=== PATIENT | female | born 1945 | race Caucasian/White ===

== ENCOUNTER 2023-12-30 12:25 | Inpatient (IN) | payer OTHER, SELFPAY ==
[2023-12-29] VITALS (8 sets, daily range): BP systolic 102–128; BP diastolic 22–65
--- NOTE | 2023-12-29 14:45 | ED.GENMED ---
History of Present Illness
General
Chief Complaint: Breathing Problem
Time Seen by Provider: 12/29/23 14:45
History of Present Illness
History of Present Illness:
HPI: Patient presents from with concerns for shortness of breath and was found to be 85% on room air. She has a history of COPD. She does not use oxygen at [facility] . Sister at bedside indicates the patient is been having shortness
of breath over the last several months. However symptoms apparently acutely worsened today.
EXAM:
GENERAL: Appears in no significant respiratory distress however she was already given a DuoNeb and has been placed on nasal cannula oxygen
HEENT: Moist oral mucosa
CARDIOVASCULAR: Regular rate and rhythm
PULMONARY: Minimal respiratory distress, the patient has decreased breath sounds equally with wheezes left greater than right
ABDOMEN: Soft and nontender with no peritoneal signs
NEUROLOGIC: The patient has evidence of dementia, not oriented to month or place, strength is equal in all extremities
EXTREMITIES: Moves all extremities equally, no tenderness, no edema
PYSCHIATRIC: Very limited historian, poor insight and judgment
TIME OF INITIAL ENCOUNTER: 3:05 PM
NUMBER AND COMPLEXITY OF PROBLEMS ADDRESSED AT THE ENCOUNTER
� Chronic conditions affecting care: COPD, hypothyroidism
� Acute Exacerbation and/or Progression of Chronic Illness: This is an acute problem
� Differential Diagnosis includes: COPD exacerbation, pneumonia, viral syndrome
AMOUNT AND/OR COMPLEXITY OF DATA TO BE REVIEWED AND ANALYZED
� I performed an independent evaluation of and my interpretation is:
EKG: Sinus 99, normal axis, no acute ST abnormality
CT:
X-rays: Chest x-ray shows no clear acute abnormality
Laboratory Studies: White count 15.6, hemoglobin normal, chemistries unremarkable, troponin negative,
Other:
� Review of other/old records: The patient had CT of the brain June 2022 which was unremarkable
� Clinical information was obtained by an independent historian: I spoke to the sister at bedside who states she is at her baseline mental status (history of dementia)
� Prescriptions/Medications Considered but not given:
� Further testing considered but not performed:
RISK OF COMPLICATIONS AND/OR MORBIDITY OR MORTALITY OF PATIENT MANAGEMENT
� Social determinants of health affecting care: Resides at [facility]
� Discussion with other providers: Hospitalist for admission at 4:33 PM
� Escalation of care including admission/observation vs risk of discharge considered: The patient had room air sat of 85% and normally does not use oxygen at her facility. We have placed her on nasal cannula oxygen and have
given IV Decadron and DuoNebs. On reassessment at 4:30 PM, she is confirmed to be hypoxic to 86% on room air. Will plan keeping in the hospital due to the hypoxia and treat for COPD exacerbation.
Past History
Past History
ED Past Medical History: COPD, Hypothyroidism and Psychiatric
Social History
Tobacco: Smoker
Phy Exam
Physical Exam
Physical Exam:
See HPI
Scores
Heart Failure Risk
Heart Failure Risk Score: Not Applicable
Course
Orders/Labs/Results
Orders:
Orders
12/29/23 14:43
Electrocardiogram (*1) Urgent
Reason for Study: Other
Other Reason for Exam: Respiratory Distress
Cardiac Monitoring- Treatment ONCE
EKG- Treatment ONCE
IV Insert/Care/Rem.- Treatment PRN
CR Chest - 2 Views Urgent
Comment:
Reason For Exam: respiratory distress
O2 Therapy [RESP] Urgent
Titrate/Wean O2 to maintain O2 sat greater than (%): 93
Special Instructions: TO MAINTAIN CONTINUOUS O2 SATS >/= 93%
Pulse Ox/cont/shift [RESP] Urgent
Quantity: 1
Special Instructions: continuous pulse ox
12/29/23 14:54
Complete Blood Count/With Diff Urgent
Comprehensive Metabolic Panel Urgent
TSH Reflex To Free T4 Urgent
Comment: TSH REFLEX ADDED ON BY FLOOR 3PM 12-29-23
Troponin I Urgent
12/29/23 14:59
Add On- LAB Urgent
Tests Added?: tsh reflex fT4
12/29/23 15:09
Dexamethasone Sod Phosphate [Decadron] 10 mg IV NOW STA
Ipratropium/Albuterol Sulfate [Duoneb] 3 ml INH R NOW ONE
12/29/23 15:43
Add On- LAB Urgent
Tests Added?: bnp
12/29/23 15:59
COVID-19 Antigen Urgent
Source: Nasal Swab
Abnormal Lab Results
12/29/23
14:54
WBC 15.6 H 10^3/uL
(4.8-10.8)
RDW 14.8 H %
(11.5-14.5)
MPV 10.6 H fL
(7.4-10.4)
Abs Immat Gran (auto) 0.1 H 10^3/uL
(0-0.05)
Absolute Neuts (auto) 12.5 H 10^3/uL
(1.4-6.5)
Absolute Monos (auto) 1.5 H 10^3/uL
(0.1-0.6)
Neutrophils % 80.2 H %
(42.2-75.2)
Lymphocytes % 9.4 L %
(20.5-51.1)
Monocytes % 9.7 H %
(1.7-9.3)
BUN 22 H mg/dl
(7-17)
Glucose 122 H mg/dl
(70-99)
Alkaline Phosphatase 127 H U/L
(38-126)
12/29/23 14:54
12/29/23 14:54
Vital Signs
Initial and Last Documented VS:
Initial Vital Signs
Temp Pulse Resp BP Pulse Ox
100 F 99 26 128/60 85
12/29/23 14:45 12/29/23 14:45 12/29/23 14:45 12/29/23 14:45 12/29/23 14:45
Last Documented Vital Signs
Temp Pulse Resp BP Pulse Ox
99.2 F 95 17 102/54 94
12/29/23 16:00 12/29/23 17:00 12/29/23 17:00 12/29/23 17:00 12/29/23 17:00
*Critical Care Note
Total Time (30-74mins, 75-104mins- exclusive of procedures): Not Applicable
ED Attending Note
-
Portions of this chart may have been created with voice recognition software.� Occasional wrong word or��sound alike� substitutions may have occurred due to the inherent limitations of voice recognition software.
Discharge Plan
Departure
Patient Disposition: Admit
Date of Disposition: 12/29/23
Time of Disposition: 17:07
Presentation/result/management discussed w/ accepting MD/DO: Hospitalist
Discharge Problem:
Acute exacerbation of chronic obstructive pulmonary disease
Prescriptions:
No Action
fluoxetine 40 mg Capsule
40 mg PO DAILY
donepezil 5 mg Tablet
5 mg PO DAILY@1900
levothyroxine [Synthroid] 50 mcg Tablet
50 mcg PO DAILY@0600
mirtazapine 15 mg Tablet
22.5 mg PO DAILY@1900
acetaminophen 325 mg Tablet
650 mg PO TIDPRN PRN (Reason: mild pain)
cetirizine 10 mg Tablet
10 mg PO DAILY
risperidone 0.25 mg tablet
0.25 mg PO BID
nystatin [Nystop] 100,000 unit/gram powder
1 applic TOPICAL BID
Patient Comments:
apply to right groin and under both breasts
buspirone 15 mg tablet
15 mg PO DAILY@1900
bupropion HCl 150 mg tablet extended release 24 hr
150 mg PO DAILY
Referrals:
YARA,MADEEHA, MD [Family Provider] -
Interventions
Interventions:
*Risk Screen - Suicide Last Done: 12/29/23 14:45
*General Assessment Last Done: 12/29/23 14:45
*Neglect/Abuse Screening Last Done: 12/29/23 14:45
ED- Fall Risk Assessment Last Done: 12/29/23 15:24
*ED COVID-19 Vaccine History Last Done: 12/29/23 14:51
ED- Cardiac Assessment Last Done: 12/29/23 15:27
ED- Pulmonary Assessment Last Done: 12/29/23 15:23
Discharge Date and Time
Print Language: [place]
[2023-12-29 15:10] LABS: % Basophils 0.2 % (0-2); % Eosinophils 0.1 % (0-6); % Immature Granulocytes 0.4 % (0-0.5); % Lymphocytes 9.4 % (20.5-51.1); % Monocytes 9.7 % (1.7-9.3); % Neutrophils 80.2 % (42.2-75.2); Absolute Immature Granulocytes 0.1 10^3/uL (0-0.05); Absolute Lymphocytes 1.5 10^3/uL (1.2-3.4); Absolute Monocytes 1.5 10^3/uL (0.1-0.6); Absolute Neutrophils 12.5 10^3/uL (1.4-6.5); Hematocrit 37.1 % (37.0-47.0); Hemoglobin 12.4 g/dL (12.0-16.0); Mean Corp Hgb Conc. 33.4 g/dL (33.0-37.0); Mean Corpuscular Hgb 28.3 pg (27.0-31.0); Mean Corpuscular Volume 84.7 fL (81.0-99.0); Mean Platelet Volume 10.6 fL (7.4-10.4); Nucleated Red Blood Cells % 0 %; Platelet Count 214 10^3/uL (130-400); Red Blood Cell Count 4.38 10^6/uL (4.20-5.40); Red Cell Dist. Width 14.8 % (11.5-14.5); White Blood Cell Count 15.6 10^3/uL (4.8-10.8)
[2023-12-29] MEDS: DUONEB 3 ML INH ×2 (15:18→19:56)
[2023-12-29] MEDS: DECADRON 10 MG IV (15:18)
[2023-12-29 15:21] LABS: ALT (SGPT) 14 U/L (0-35); AST (SGOT) 20 U/L (14-36); Albumin 4.2 g/dl (3.5-5.0); Alkaline Phosphatase 127 U/L (38-126); Blood Urea Nitrogen 22 mg/dl (7-17); Calcium 9.1 mg/dl (8.4-10.2); Carbon Dioxide 27 mmol/L (22-30); Chloride 101 mmol/L (98-107); Glucose 122 mg/dl (70-99); Potassium 4.3 mmol/L (3.5-5.1); Sodium 138 mmol/L (135-145); Total Bilirubin 0.7 mg/dl (0.2-1.3); Total Protein 6.6 g/dl (6.3-8.2); eGFR > 60.00
[2023-12-29 15:32] LABS: Troponin I < 0.012 ng/ml
[2023-12-29 16:36] LABS: COVID-19 Antigen Negative (Negative)
--- NOTE | 2023-12-29 17:29 | HPS.HSE ---
Family Physician
-
Family Physician: GAYATRI LIVINGSTON MD
Chief Complaint
-
shortness of breath
History of Present Illness
78-year-old female past medical history of COPD, dementia, anxiety/depression, hypothyroidism [place] with shortness of breath starting today with slight cough. She was found to be 85% oxygenation on room air. She does not use
oxygen at baseline. Shortness of breath was acutely worse today but she has been having shortness of breath over the past several months and is not compliant with inhalers.
She is a former smoker. Denies alcohol use.
Medical History
Past Medical History
Past Medical History: Reports Other (COPD, dementia, anxiety/depression, hypothyroidism)
Past Surgical History: Reports None
Social History
Tobacco: Former Smoker
Alcohol: None
Drug: None
Family History
Family History: Not pertinent
Allergies / Home Medications
Allergies reflects when Allergies were last updated in [employer].
Home Medications with original date entered in [employer]
Allergy/Medication List:
Allergies
Allergy/AdvReac Type Severity Reaction Status Date / Time
No Known Allergies Allergy Verified 09/06/21 10:33
Home Medications
donepezil 5 mg tablet 5 mg PO DAILY@1900 Neurological Condition 07/05/22
fluoxetine 40 mg capsule 40 mg PO DAILY Mental Health/Anxiety 07/05/22
levothyroxine 50 mcg tablet (Synthroid) 50 mcg PO DAILY@0600 Thyroid 07/05/22
mirtazapine 15 mg tablet 22.5 mg PO DAILY@1900 Sleep 07/05/22
acetaminophen 325 mg tablet 650 mg PO TIDPRN PRN mild pain 12/29/23
bupropion HCl 150 mg 24 hr tablet, extended release 150 mg PO DAILY 12/29/23
buspirone 15 mg tablet 15 mg PO DAILY@1900 12/29/23
cetirizine 10 mg tablet 10 mg PO DAILY 12/29/23
nystatin 100,000 unit/gram topical powder (Nystop) 1 applic topical BID 12/29/23
risperidone 0.25 mg tablet 0.25 mg PO BID 12/29/23
Review of Systems
-
History Source: Patient
A 12 point ROS was completed and negative except as noted: Yes
Constitutional: Reports No Symptoms
EENT: Reports No Symptoms
Respiratory: Reports See HPI
Cardiac: Reports No Symptoms
Abdomen/GI: Reports No Symptoms
: Reports No Symptoms
Musculoskeletal: Reports No Symptoms
Skin: Reports No Symptoms
Neurological: Reports No Symptoms
Endocrine: Reports No Symptoms
Hematologic/Lymphatic: Reports No Symptoms
Psych: Reports No Symptoms
Physical Exam
Vital Signs
Vital Signs
Temp Pulse Resp BP Pulse Ox
99.2 F 95 17 102/54 94
12/29/23 16:00 12/29/23 17:00 12/29/23 17:00 12/29/23 17:00 12/29/23 17:00
Physical Exam
General: Well Developed, Well Nourished and No Apparent Distress
HEENT: NormoCephalic, Moist mucous membranes and Atraumatic
Respiratory: Wheezes
Cardiac: S1/S2 and Regular Rhythm; No Murmur or Rub
GI: Soft, Non Tender, Non Distended and Normal Bowel Sounds; No Organomegaly
Rectal: Deferred by Provider
Musculoskeletal: No Clubbing, No Cyanosis and No Edema
Skin: No Rash
Neuro: Nonfocal/grossly intact
Laboratory Results
-
12/29/23 14:54
12/29/23 14:54
Laboratory Results
pH Cancelled 12/29/23 16:36
pCO2 Cancelled 12/29/23 16:36
pO2 Cancelled 12/29/23 16:36
HCO3 Cancelled 12/29/23 16:36
Total Bilirubin 0.7 mg/dl (0.2-1.3) 12/29/23 14:54
AST 20 U/L (14-36) 12/29/23 14:54
ALT 14 U/L (0-35) 12/29/23 14:54
Alkaline Phosphatase 127 U/L (38-126) H 12/29/23 14:54
Troponin I < 0.012 ng/ml 12/29/23 14:54
Data Reviewed
-
Lab Data: Labs Reviewed by me
Old Records: Reviewed
Impression/Plan
-
IMPRESSION:
PLAN:
# COPD exacerbation
-Chest x-ray shows minimal bibasilar opacities suggesting subsegmental atelectasis/mild scarring
-DuoNebs every 6 hours
-Dexamethasone 4 mg every 12
-Doxycycline
-Guaifenesin
Dementia
-Continue donepezil, Risperdal
Anxiety/depression
-Continue bupropion, buspirone, fluoxetine, mirtazapine
Hypothyroidism
-Continue levothyroxine
Full code
DVT prophylaxis�heparin
Regular diet
[2023-12-29 19:37] LABS: TSH Reflex To Free T4 3.02 uIU/ml (0.47-4.68)
[2023-12-29] MEDS: MUCINEX 600 MG PO (20:12)
[2023-12-29] MEDS: BUSPAR 15 MG PO (20:12)
[2023-12-29] MEDS: REMERON 22.5 MG PO (20:12)
[2023-12-29] MEDS: ARICEPT 5 MG PO (20:13)
[2023-12-29] MEDS: RISPERDAL 0.25 MG PO (20:13)
[2023-12-29] MEDS: VIBRAMYCIN 100 MG PO (20:13)
[2023-12-29] MEDS: HEPARIN 5000 UNITS SC (20:14)
[2023-12-29] MEDS: DESENEX/MITRAZOL/ZEASORB 1 APPLIC TOPICAL (20:15)
--- NOTE | 2023-12-30 02:57 | DOWNTIME ---
There was a [employer] Downtime on 12/30/2023 from 0100 to 12/30/2023 at 0255. Downtime documentation of patient's care, including medication administrations, has been reconciled in the electronic record per guidelines. Refer to the
patient's paper chart under the miscellaneous tab to see printed paper medication records and downtime forms.
[2023-12-30] MEDS: DECADRON 4 MG IV ×2 (03:58→16:19)
--- NOTE | 2023-12-30 04:39 | W.PN.UPDATE ---
Update Note
Progress Note Update
Family reported to RN, patient is not supposed to be on Thyroid medicine, per custodial patient takes Synthroid everyday. Will order TSH.
[2023-12-30] MEDS: SYNTHROID PO (05:39)
[2023-12-30 07:27] LABS: ALT (SGPT) 12 U/L (0-35); AST (SGOT) 22 U/L (14-36); Albumin 3.8 g/dl (3.5-5.0); Alkaline Phosphatase 126 U/L (38-126); Blood Urea Nitrogen 24 mg/dl (7-17); Carbon Dioxide 25 mmol/L (22-30); Chloride 104 mmol/L (98-107); Estimated Creatinine Clearance 67 ml/min; Glucose 127 mg/dl (70-99); Potassium 4.4 mmol/L (3.5-5.1); Sodium 139 mmol/L (135-145); Total Bilirubin 0.5 mg/dl (0.2-1.3); Total Protein 6.4 g/dl (6.3-8.2); eGFR > 60.00
[2023-12-30] MEDS: DUONEB 3 ML INH ×4 (07:29→19:21)
[2023-12-30 07:31] VITALS: BP 112/65
[2023-12-30 08:04] LABS: % Basophils 0.2 % (0-2); % Eosinophils 0.1 % (0-6); % Immature Granulocytes 0.6 % (0-0.5); % Lymphocytes 5.9 % (20.5-51.1); % Monocytes 2.8 % (1.7-9.3); % Neutrophils 90.4 % (42.2-75.2); Absolute Immature Granulocytes 0.1 10^3/uL (0-0.05); Absolute Monocytes 0.5 10^3/uL (0.1-0.6); Absolute Neutrophils 15.8 10^3/uL (1.4-6.5); Hematocrit 38.5 % (37.0-47.0); Hemoglobin 12.9 g/dL (12.0-16.0); Mean Corp Hgb Conc. 33.5 g/dL (33.0-37.0); Mean Corpuscular Hgb 28.4 pg (27.0-31.0); Mean Corpuscular Volume 84.6 fL (81.0-99.0); Mean Platelet Volume 10.3 fL (7.4-10.4); Nucleated Red Blood Cells % 0 %; Platelet Count 209 10^3/uL (130-400); Red Blood Cell Count 4.55 10^6/uL (4.20-5.40); Red Cell Dist. Width 14.6 % (11.5-14.5); White Blood Cell Count 17.4 10^3/uL (4.8-10.8)
[2023-12-30 09:08] LABS: TSH 1.19 uIU/ml (0.47-4.68)
--- NOTE | 2023-12-30 09:09 | W.PN.HOSP.TC ---
Addendum entered and electronically signed by Adela Remy MD 12/30/23 16:13:
78-year-old female with shortness of breath. She was found to have 85% oxygenation on room .air
CVS: S1-S2 normal
Chest: few rales B/L . Few Exp wheezes left base.
Abdomen: Soft, NT / Bowel sounds present
Extremities: No edema, normal pulses
CELL MAKER: Non focal exam
# COPD exacerbation
Acute hypoxic respiratory insufficiency secondary to above
COVID screen neg,
ProBNP not elevated.
Chest x-ray minimally bibasilar opacities subsegmental atelectasis versus chronic
Continue nebulizer treatments, dexamethasone
Continue doxycycline and mucolytic's
Follow oxygen levels- wean as tolerated.
Speech eval- noted. No aspiration.
# Dementia with behavioral disturbance. Watch for delirium during hospitalization especially with steroids-continue donepezil and risperidone
# Anxiety depression-continue bupropion, buspirone, fluoxetine, Remeron
# Hypothyroidism-continue Synthroid. Reportedly family thinks that she is not on Synthroid as outpatient. Clarified with facility. Pt was on Synthroid.
# DVT prophylaxis-subcutaneous Lovenox
# Full code
Left message for sister.
Original Note:
Today's Communication/Plan
-
Wean off oxygen as tolerated
Assessment / Plan
Assessment / Plan
Assessment:
78-year-old female past medical history of COPD, dementia, anxiety/depression, hypothyroidism [place] with shortness of breath starting today with slight cough. She was found to be 85% oxygenation on room air. She does not use
oxygen at baseline. Shortness of breath was acutely worse on admission but she has been having shortness of breath over the past several months and is not compliant with inhalers.
Plan:
# COPD exacerbation
-This morning patient was requiring 4 L of oxygen and satting 94%
-Have continue to wean oxygen currently on 2 L satting 94%
-Chest x-ray shows minimal bibasilar opacities suggesting subsegmental atelectasis/mild scarring
-DuoNebs every 6 hours
-Dexamethasone 4 mg every 12
-Doxycycline 100 twice daily, currently day 2
-Ceftriaxone 1000 mg IV, currently day 1
-Guaifenesin
-Patient is noncompliant with COPD inhalers, patient does not see a bookstore manager regularly
-Will consider outpatient pulmonology as well as pulmonology consult inpatient
-proBNP was ordered, if high will reflex echocardiogram
-Incentive inspirometer will be ordered for patient
Dementia
-Patient seems confused as to what is going on, however her sister mentions that this is her normal self. Sister mention she has improved from yesterday
-Continue donepezil, Risperdal
Anxiety/depression
-Continue bupropion, buspirone, fluoxetine, mirtazapine
Hypothyroidism
-Continue levothyroxine
Full code
DVT prophylaxis�heparin
Regular diet
Anticipated Discharge: > 48 hours
Subjective/Interval History
-
Date of Service: December 30, 2023
No acute events overnight
Sister mentions patient is at baseline mentation, was confused last night
Objective Data
-
Labs:
Laboratory Results
12/30/23 12/30/23
05:52 07:52
WBC 17.4 H
Hgb 12.9
Hct 38.5
Plt Count 209
Sodium 139
Potassium 4.4
Chloride 104
Carbon Dioxide 25
BUN 24 H
Creatinine 0.7
Glucose 127 H
Calcium 9.0
Total Bilirubin 0.5
AST 22
ALT 12
Alkaline Phosphatase 126
Vital Signs:
Vital Signs
Temp Pulse Resp BP Pulse Ox
99.5 F 77 18 112/65 94
12/30/23 07:31 12/30/23 07:35 12/30/23 07:35 12/30/23 07:31 12/30/23 07:35
I&O
12/29/23 12/30/23 12/31/23
06:59 06:59 06:59
Intake Total 480 / 480
Balance 480 / 480
Review of Systems
-
History Source: Patient and Family
Constitutional: Reports No Symptoms
Respiratory: Reports Cough and Trouble Breathing
Cardiac: Reports No Symptoms
Abdomen/GI: Reports No Symptoms
Physical Exam
-
General: Well Developed, Well Nourished, No Apparent Distress and Comfortable; Negative Respiratory Distress
Respiratory: Clear to Auscultation and Crackles (Right lower lobe crackles)
Cardiac: Regular Rhythm and S1/S2
GI: Soft, Nontender, Nondistended and Normal Bowel Sounds
Musculoskeletal: No Edema
Skin: Warm and Dry
Neuro: Awake, Alert, Oriented and AO x 3
Psych: Calm
Data Reviewed
-
Diagnostic Radiology: Report Reviewed by me and Discussed with Physician
Labs: Labs Reviewed by me and Discussed with Physician
[2023-12-30] MEDS: MUCINEX 600 MG PO ×2 (09:38→19:49)
[2023-12-30] MEDS: PROZAC 40 MG PO (09:38)
[2023-12-30] MEDS: VIBRAMYCIN 100 MG PO ×2 (09:38→19:49)
[2023-12-30] MEDS: WELLBUTRIN XL (24 hour extended release) 150 MG PO (09:38)
[2023-12-30] MEDS: ZYRTEC 10 MG PO (09:38)
[2023-12-30] MEDS: RISPERDAL 0.25 MG PO ×2 (09:38→19:49)
[2023-12-30] MEDS: DESENEX/MITRAZOL/ZEASORB 1 APPLIC TOPICAL ×2 (09:39→19:48)
[2023-12-30] MEDS: HEPARIN 5000 UNITS SC ×2 (09:39→19:49)
[2023-12-30] MEDS: SYNTHROID 50 MCG PO (10:04)
[2023-12-30 12:24] LABS: NT-proBNP 420 pg/ml
[2023-12-30] MEDS: STERILE WATER FOR INJECTION 10 ML IV (13:42)
[2023-12-30] MEDS: ROCEPHIN 1000 MG IV (13:42)
--- NOTE | 2023-12-30 15:24 | PTOTSP ---
Speech Therapy Swallowing Assessment
Oral/pharyngeal swallow deemed within functional limits witout overt signs of aspiration or pharyngeal stasis.
Recommend
1. Continue with regular solids and thin liquids
2. Meds with liquid as tolerated.
No skilled ST indicated at this time
[2023-12-30 15:40] VITALS: BP 118/50
--- NOTE | 2023-12-30 16:04 | CM ---
Alert awake confused patient who lives at .Spoke with Amie at she is independent with walker She will transition to Assisted living. She is assisted with meds. She is confused at baseline.Left message with sister Tracee no all
back.She is on oxygen now but not at baseline.
No VN hx / No SNF history
Pharmacy [facility]
PCP DR Briggs
PLAN Will depend on PT OT and course of hospital stay
[2023-12-30] MEDS: BUSPAR 15 MG PO (18:02)
[2023-12-30] MEDS: REMERON 22.5 MG PO (18:02)
[2023-12-30] MEDS: ARICEPT 5 MG PO (18:02)
[2023-12-30 23:27] VITALS: BP 109/55
[2023-12-31] MEDS: DECADRON 4 MG IV (04:48)
[2023-12-31] MEDS: SYNTHROID 50 MCG PO (04:49)
[2023-12-31] MEDS: DUONEB 3 ML INH ×3 (07:22→19:34)
[2023-12-31 07:54] VITALS: BP 109/74
[2023-12-31] MEDS: VIBRAMYCIN 100 MG PO ×2 (08:31→21:44)
[2023-12-31] MEDS: PROZAC 40 MG PO (08:31)
[2023-12-31] MEDS: RISPERDAL 0.25 MG PO ×2 (08:32→21:44)
[2023-12-31] MEDS: WELLBUTRIN XL (24 hour extended release) 150 MG PO (08:32)
[2023-12-31] MEDS: ZYRTEC 10 MG PO (08:32)
[2023-12-31] MEDS: MUCINEX 600 MG PO ×2 (08:32→21:44)
[2023-12-31] MEDS: HEPARIN 5000 UNITS SC ×2 (08:34→21:44)
[2023-12-31] MEDS: DESENEX/MITRAZOL/ZEASORB 1 APPLIC TOPICAL ×2 (08:41→21:32)
--- NOTE | 2023-12-31 09:10 | W.PN.HOSP.TC ---
Addendum entered and electronically signed by Adela Remy MD 12/31/23 16:17:
Spoke to daughter and updated.
Discussed about code purple patient's confusion, needing the medicine/restraints.
Daughter stated that she can get confused when she changes facilities. She completely is aware about this kind of behavior changes and appreciative of her care here.
Addendum entered and electronically signed by Adela Remy MD 12/31/23 15:54:
78-year-old female with shortness of breath. She was found to have 85% oxygenation on room .air
CVS: S1-S2 normal
Chest: few rales B/L . Few Exp wheezes left base.
Abdomen: Soft, NT / Bowel sounds present
Extremities: No edema, normal pulses
SPREADER OPERATOR: Non focal exam
# COPD exacerbation
Acute hypoxic respiratory insufficiency secondary to above
COVID screen neg,
ProBNP not elevated.
Chest x-ray minimally bibasilar opacities subsegmental atelectasis versus chronic
Continue nebulizer treatments, dexamethasone
Continue doxycycline and mucolytic's. Stop Rocephin
Wean steroids
Follow oxygen levels- wean as tolerated.
Speech eval- noted. No aspiration.
Off oxygen now
# Dementia with behavioral disturbance.
# Delirium with steroids and underlying Dementia-continue donepezil and risperidone. On one-to-one now. As needed Haldol and as needed restraints
# Anxiety depression-continue bupropion, buspirone, fluoxetine, Remeron
# Hypothyroidism-continue Synthroid. Reportedly family thinks that she is not on Synthroid as outpatient. Clarified with facility. Pt was on Synthroid.
# DVT prophylaxis-subcutaneous Lovenox
# Full code
D/W RN
Called sister and daughter both went to message
time more than 50 min
Original Note:
Documented by User: Jarett Lyman DO, Resident 12/31/23 11:38
Today's Communication/Plan
-
Continue antibiotics
Monitor O2 saturation on room air
Assessment / Plan
Assessment / Plan
Assessment:
78-year-old female past medical history of COPD, dementia, anxiety/depression, hypothyroidism [place] shortness of breath starting today with slight cough. She was found to be 85% oxygenation on room air. She does not use
oxygen at baseline. Shortness of breath was acutely worse on admission but she has been having shortness of breath over the past several months and is not compliant with inhalers.
Plan:
# COPD exacerbation
-On admission patient was requiring 4 L of oxygen and satting 94%
-Patient has been weaned off oxygen, patient currently on room air
-Chest x-ray shows minimal bibasilar opacities suggesting subsegmental atelectasis/mild scarring
-DuoNebs every 6 hours
-Dexamethasone 4 mg every 12
-Doxycycline 100 twice daily, currently day 3
-Ceftriaxone 1000 mg IV, currently day 2
-Ceftriaxone discontinued
-Guaifenesin
-Patient is noncompliant with COPD inhalers, patient does not see a supervisor shearing regularly
-Will consider outpatient pulmonology as well as pulmonology consult inpatient
-proBNP returned intermediate
-Very low likelihood of heart failure, no echocardiogram needed
-Incentive inspirometer will be ordered for patient
-Today patiently subjective states that she does not have a cough and is no longer short of breath
Dementia
-Patient seems confused as to what is going on, however her sister mentions that this is her normal self. Sister mention she has improved from yesterday
-Patient argumentative and agitated this morning, was able to be talked down and was pleasant afterwards
-Likely secondary to steroids and dementia
-Patient was refusing medications stating he is not sure, was able to be convinced to take DVT prophylaxis
-Continue donepezil, Risperdal
-Code purple called on patient. soft wrist and ankle restraints left and right were ordered as well as antipsychotic for agitation
-haldol and asenapine given for agitation
-Haldol 0.2 IV Q4 PRN ordered
-EKG ordered to monitor QTC
-Steroid decreased to 2mg Q 12
Anxiety/depression
-Continue bupropion, buspirone, fluoxetine, mirtazapine
Hypothyroidism
-Continue levothyroxine
Full code
DVT prophylaxis�heparin
Regular diet
Anticipated Discharge: 24 - 48 hours
Subjective/Interval History
-
Date of Service: December 31, 2023
Nurse reported patient to be restless overnight, will be starting a bed sitter
Patient was very argumentative and upset she says that 'she does not like being told to sit 'then stood up and began arguing with the nurse
Patient was able to be talked down, and was pleasant afterwards. Labile mood very likely related to dementia and steroid
Later code purple was called on patient. Soft wrist restraints and antipsychotic ordered for agitation
Objective Data
-
Labs:
Laboratory Results
12/31/23
06:00
WBC Pending
Hgb Pending
Hct Pending
Plt Count Pending
Sodium Pending
Potassium Pending
Chloride Pending
Carbon Dioxide Pending
BUN Pending
Creatinine Pending
Glucose Pending
Calcium Pending
Vital Signs:
Vital Signs
Temp Pulse Resp BP Pulse Ox
97.7 F 77 16 109/74 95
12/31/23 07:54 12/31/23 07:54 12/31/23 07:54 12/31/23 07:54 12/31/23 07:54
I&O
12/30/23 12/31/23 01/01/24
06:59 06:59 06:59
Intake Total 480 / 480 240 / 240
Balance 480 / 480 240 / 240
Review of Systems
-
Unable to obtain full review of systems at this time due to: Dementia
Respiratory: Reports No Symptoms; Denies Cough or Trouble Breathing
Cardiac: Reports No Symptoms
Physical Exam
-
General: Well Developed, Well Nourished, No Apparent Distress and Conversant
Respiratory: Clear to Auscultation; Negative Crackles
Cardiac: Regular Rhythm and S1/S2
GI: Soft, Nontender, Nondistended and Normal Bowel Sounds
Skin: Warm
Neuro: Awake and Alert; Negative Oriented
Psych: Confused, Agitated and Apparent Dementia; Negative Intact Judgement/Insight
Data Reviewed
-
Labs: Labs Reviewed by me and Discussed with Physician

Documented by User: Adela Remy MD 12/31/23 15:51
Assessment / Plan
Assessment / Plan
Assessment:
78-year-old female past medical history of COPD, dementia, anxiety/depression, hypothyroidism [place] with shortness of breath starting today with slight cough. She was found to be 85% oxygenation on room air. She does not use
oxygen at baseline. Shortness of breath was acutely worse on admission but she has been having shortness of breath over the past several months and is not compliant with inhalers.
Plan:
# COPD exacerbation
-On admission patient was requiring 4 L of oxygen and satting 94%
-Patient has been weaned off oxygen, patient currently on room air
-Chest x-ray shows minimal bibasilar opacities suggesting subsegmental atelectasis/mild scarring
-DuoNebs every 6 hours
-Dexamethasone 4 mg every 12
-Doxycycline 100 twice daily, currently day 3
-Ceftriaxone 1000 mg IV, currently day 2
-Ceftriaxone discontinued
-Guaifenesin
-Patient is noncompliant with COPD inhalers, patient does not see a supervisor shearing regularly
-Will consider outpatient pulmonology as well as pulmonology consult inpatient
-proBNP returned intermediate
-Very low likelihood of heart failure, no echocardiogram needed
-Incentive inspirometer will be ordered for patient
-Today patiently subjective states that she does not have a cough and is no longer short of breath
Dementia
-Patient seems confused as to what is going on, however her sister mentions that this is her normal self. Sister mention she has improved from yesterday
-Patient argumentative and agitated this morning, was able to be talked down and was pleasant afterwards
-Likely secondary to steroids and dementia
-Patient was refusing medications stating he is not sure, was able to be convinced to take DVT prophylaxis
-Continue donepezil, Risperdal
-Code purple called on patient.
-haldol and asenapine given for agitation
-Haldol 0.2 IV Q4 PRN ordered
-EKG ordered to monitor QTC
-Steroid decreased to 2mg Q 12
Anxiety/depression
-Continue bupropion, buspirone, fluoxetine, mirtazapine
Hypothyroidism
-Continue levothyroxine
Full code
DVT prophylaxis�heparin
Regular diet
[2023-12-31 09:32] VITALS: BP 149/67; PULSE 81; O2SAT 90
[2023-12-31 09:36] VITALS: BP 149/67; PULSE 85; O2SAT 93
[2023-12-31] MEDS: SAPHRIS 2.5 MG SL (10:34)
[2023-12-31 10:37] LABS: % Basophils 0.2 % (0-2); % Immature Granulocytes 1.4 % (0-0.5); % Lymphocytes 3.5 % (20.5-51.1); % Monocytes 3.7 % (1.7-9.3); % Neutrophils 91.2 % (42.2-75.2); Absolute Immature Granulocytes 0.3 10^3/uL (0-0.05); Absolute Lymphocytes 0.6 10^3/uL (1.2-3.4); Absolute Monocytes 0.7 10^3/uL (0.1-0.6); Absolute Neutrophils 16.3 10^3/uL (1.4-6.5); Hematocrit 39.5 % (37.0-47.0); Hemoglobin 13.2 g/dL (12.0-16.0); Mean Corp Hgb Conc. 33.4 g/dL (33.0-37.0); Mean Corpuscular Hgb 28.5 pg (27.0-31.0); Mean Corpuscular Volume 85.3 fL (81.0-99.0); Mean Platelet Volume 10.6 fL (7.4-10.4); Nucleated Red Blood Cells % 0 %; Platelet Count 230 10^3/uL (130-400); Red Blood Cell Count 4.63 10^6/uL (4.20-5.40); Red Cell Dist. Width 14.9 % (11.5-14.5); White Blood Cell Count 17.9 10^3/uL (4.8-10.8)
[2023-12-31] MEDS: HALDOL 1 MG IV (10:44)
--- NOTE | 2023-12-31 10:57 | PTCARENOTE ---
Pt is increasingly agitated, will not stay in her part of the room, walking around and entering other pt rooms, meds given with no response. Pt refusing to stay and attempting elopment, code wai called, notified for medication to calm her, pt
refused to take it, security in room preventing pt from leaving, MD still has not come at all to see this pt. Resident came around med pass and witnessed the behavior and nothing was ordered to calm pt. Pt pushing security put the door, restraints
requested from along with Halidol IV. Restraints placed, halidol admin and pt is more calm in bed with RN present.
Attempted to get BP and EKG and pt is threatening to throw the phone, not sure how she got the phone. but it was removed immediately.
[2023-12-31 11:12] LABS: Blood Urea Nitrogen 32 mg/dl (7-17); Calcium 9.7 mg/dl (8.4-10.2); Carbon Dioxide 25 mmol/L (22-30); Chloride 104 mmol/L (98-107); Estimated Creatinine Clearance 47 ml/min; Glucose 105 mg/dl (70-99); Potassium 4.3 mmol/L (3.5-5.1); Sodium 140 mmol/L (135-145); eGFR 58.02
[2023-12-31] MEDS: DUONEB INH (11:18)
[2023-12-31 11:51] LABS: TSH 1.38 uIU/ml (0.47-4.68)
--- NOTE | 2023-12-31 14:40 | TRANSFER ---
Received pt from . Pt AAOX1. 1:1 obsv. Pt forgetful at times. Plan of care ongoing.
[2023-12-31 15:20] VITALS: BP 132/75
[2023-12-31] MEDS: DECADRON 2 MG IV (15:56)
[2023-12-31] MEDS: FLUSH (NSS) 1 FLUSH IV (15:57)
--- NOTE | 2023-12-31 16:52 | PTCARENOTE ---
Patient refused EKG at this time. Plan of care ongoing.
[2023-12-31] MEDS: ARICEPT 5 MG PO (18:00)
[2023-12-31] MEDS: BUSPAR 15 MG PO (18:00)
[2023-12-31] MEDS: REMERON 22.5 MG PO (18:01)
--- NOTE | 2023-12-31 23:15 | PTCARENOTE ---
Pt refused HS vital signs even after multiple attempts to educate pt. Pt in no signs of acute distress, respirations regular.
[2024-01-01] MEDS: DECADRON 2 MG IV (03:01)
[2024-01-01] MEDS: SYNTHROID 50 MCG PO (05:46)
[2024-01-01] MEDS: DUONEB 3 ML INH ×2 (07:33→11:21)
[2024-01-01 07:45] VITALS: BP 135/74
[2024-01-01] MEDS: ZYRTEC 10 MG PO (09:06)
[2024-01-01] MEDS: VIBRAMYCIN 100 MG PO (09:06)
[2024-01-01] MEDS: MUCINEX 600 MG PO (09:06)
[2024-01-01] MEDS: HEPARIN 5000 UNITS SC (09:07)
[2024-01-01] MEDS: PROZAC 40 MG PO (09:07)
[2024-01-01] MEDS: RISPERDAL 0.25 MG PO (09:07)
[2024-01-01] MEDS: WELLBUTRIN XL (24 hour extended release) 150 MG PO (09:07)
[2024-01-01] MEDS: DESENEX/MITRAZOL/ZEASORB 1 APPLIC TOPICAL (09:10)
--- NOTE | 2024-01-01 09:20 | W.PN.HOSP.TC ---
Today's Communication/Plan
-
Discontinue 1:1 and med sitter
Assessment / Plan
Assessment / Plan
Assessment:
78-year-old female past medical history of COPD, dementia, anxiety/depression, hypothyroidism [place] with shortness of breath starting today with slight cough. She was found to be 85% oxygenation on room air. She does not use
oxygen at baseline. Shortness of breath was acutely worse on admission but she has been having shortness of breath over the past several months and is not compliant with inhalers.
Plan:
# COPD exacerbation
-Resolved
-Lungs CTA
-On admission patient was requiring 4 L of oxygen and satting 94%
-Patient has been weaned off oxygen, patient currently on room air
-Chest x-ray shows minimal bibasilar opacities suggesting subsegmental atelectasis/mild scarring
-DuoNebs every 6 hours
-Dexamethasone D/C today, will start pt on prednisone taper in preparation for discharge
-Doxycycline 100 twice daily, currently day 4
-Ceftriaxone 1000 mg IV, 2 days total
-Ceftriaxone discontinued
-Guaifenesin
-Patient is noncompliant with COPD inhalers, patient does not see a manager quality systems regularly
-proBNP returned intermediate
-Very low likelihood of heart failure, no echocardiogram needed
-Incentive inspirometer will be ordered for patient
-Pt will be prescribed Spiriva to take after discharge, her sister states that she would not like to see a manager quality systems for official PFTs and evaluation
Dementia
-Patient seems confused as to what is going on, however her sister mentions that this is her normal self.
-Patient was refusing medications stating he is not sure, was able to be convinced to take DVT prophylaxis
-Continue donepezil, Risperdal
-Code purple called on patient 12/31/23
-Likely secondary to steroids and dementia
-haldol and asenapine given for agitation
-Haldol 0.5 IV Q4 PRN ordered
-EKG ordered to monitor QTC
-Patient was calm and cooperative after being moved rooms. Pleasant this am
-Med sitter was D/c
-1:1 was D/c
Anxiety/depression
-Continue bupropion, buspirone, fluoxetine, mirtazapine
Hypothyroidism
-Continue levothyroxine
Full code
DVT prophylaxis�heparin
Regular diet
Anticipated Discharge: Today
Subjective/Interval History
-
Date of Service: January 01, 2024
Pt had a good night, no more episodes of agitation
Restraints and med sitter were discontinued
Objective Data
-
Labs:
Laboratory Results
01/01/24
07:47
WBC Pending
Hgb Pending
Hct Pending
Plt Count Pending
Sodium Pending
Potassium Pending
Chloride Pending
Carbon Dioxide Pending
BUN Pending
Creatinine Pending
Glucose Pending
Calcium Pending
Vital Signs:
Vital Signs
Temp Pulse Resp BP Pulse Ox
98.4 F 79 16 135/74 89
01/01/24 07:45 01/01/24 07:45 01/01/24 07:45 01/01/24 07:45 01/01/24 07:45
I&O
12/31/23 01/01/24 01/02/24
06:59 06:59 06:59
Intake Total 240 / 240 1440 / 1440
Balance 240 / 240 1440 / 1440
Review of Systems
-
Unable to obtain full review of systems at this time due to: Dementia
Constitutional: Reports No Symptoms
Respiratory: Reports No Symptoms
Cardiac: Reports No Symptoms
Abdomen/GI: Reports No Symptoms
Physical Exam
-
General: Well Developed, No Apparent Distress, Comfortable and Conversant
Respiratory: Crackles
Cardiac: Regular Rhythm and S1/S2
GI: Soft, Nontender, Nondistended and Normal Bowel Sounds
Skin: Warm and Dry
Neuro: Awake and Alert
Psych: Confused and Apparent Dementia
Data Reviewed
-
Labs: Labs Reviewed by me and Discussed with Physician
[2024-01-01 09:40] LABS: % Basophils 0.2 % (0-2); % Lymphocytes 8.5 % (20.5-51.1); % Monocytes 5.7 % (1.7-9.3); % Neutrophils 84.6 % (42.2-75.2); Absolute Immature Granulocytes 0.1 10^3/uL (0-0.05); Absolute Lymphocytes 0.8 10^3/uL (1.2-3.4); Absolute Monocytes 0.6 10^3/uL (0.1-0.6); Absolute Neutrophils 8.4 10^3/uL (1.4-6.5); Hematocrit 39.2 % (37.0-47.0); Hemoglobin 12.7 g/dL (12.0-16.0); Mean Corp Hgb Conc. 32.4 g/dL (33.0-37.0); Mean Corpuscular Hgb 27.7 pg (27.0-31.0); Mean Corpuscular Volume 85.4 fL (81.0-99.0); Mean Platelet Volume 11.3 fL (7.4-10.4); Nucleated Red Blood Cells % 0 %; Platelet Count 242 10^3/uL (130-400); Red Blood Cell Count 4.59 10^6/uL (4.20-5.40); White Blood Cell Count 9.9 10^3/uL (4.8-10.8)
[2024-01-01 09:54] LABS: Blood Urea Nitrogen 28 mg/dl (7-17); Calcium 9.4 mg/dl (8.4-10.2); Carbon Dioxide 29 mmol/L (22-30); Chloride 104 mmol/L (98-107); Estimated Creatinine Clearance 52 ml/min; Glucose 95 mg/dl (70-99); Potassium 4.5 mmol/L (3.5-5.1); Sodium 139 mmol/L (135-145); eGFR > 60.00
--- NOTE | 2024-01-01 11:53 | CM ---
Addendum entered by Laquita Gunter 01/01/24 13:01:
Report # [phone] [facility]

ambulance forms completed.
Addendum entered by Laquita Gunter 01/01/24 12:59:
Correction nurse from is [facility] not [facility].
Addendum entered by Laquita Gunter 01/01/24 12:52:
spoke with Nurse Saida from , will fax clinicals to [phone].
Per Saida patient can return today.
Addendum entered by Laquita Gunter 01/01/24 12:44:
Spoke with patients sister Tracee in [place]. she was upset that she has not spoken with MD yet.
Asked to see CM re when patient would be going back to . CM still awaiting call back from . will attempt calling again.
Original Note:
Left message with Dianna at to speak with nursing to see if we can get patient back to facility today.
P# [phone],
[2024-01-01 15:32] VITALS: BP 146/75
[2024-01-01] MEDS: DUONEB INH (15:32)
--- NOTE | 2024-01-01 16:14 | W.DCSUMMARY ---
Discharge Summary
Discharge Data
Date of Admission: 12/30/23
Date of Discharge: 01/01/24
-
Pending Results: No
Hospital Course
Discharging Physician : Jonel Lyman
Disposition : SNF
Primary care physician : Gayatri Briggs
Principal Discharge diagnosis : COPD exacerbation
Chronic Discharge diagnosis : dementia with behavioral disturbances, Anxiety, depression, hypothyroidism
Hospital Course : 78 F w PMH of COPD, dementia, anxiety depression, hypothyroidism [place] with shortness of breath starting today as well as a slight cough. She was found to be 85% saturation on room air and she does not use
oxygen at baseline. Shortness of breath was acutely worse however she has been having shortness of breath over the past several months that she is not compliant with her inhalers. In the emergency department patient required 4 L of oxygen and was
satting 93%. She was admitted to [facility] for further management. Patient was started on doxycycline 100 mg p.o. twice daily for a total of 6 days. She was also prescribed ceftriaxone 1000 mg IV for 2 days total. Patient was started on
dexamethasone 4 mg IV daily. Second day of the patient's admission she began to be argumentative and noncompliant with nursing. At first patient was able to be talked down however later in the day a code purple had to be called on the patient.
Patient was briefly placed in 4 point restraints for approximate less than 30 minutes and was given IV Haldol and asenapine for agitation. Patient was placed on a one-to-one and a med sitter was initiated. Patient was also transferred rooms.
Patient steroid was decreased to 2 mg every 12 and EKGs were ordered. On the third day of admission patient was much more pleasant was no longer agitated or combative and had been weaned off oxygen completely. At that time patient endorsed feeling
well no longer short of breath and no more cough. Patient will be [facility] to a detention facility, with a prednisone taper and 2 days of doxycycline totaling 6 days of antibiotic treatment. Patient was also given a prescription for
DuoNebs and the Spiriva to take as outpatient, formal pulmonology consult and PFTs were offered however, patient declined.
Important imaging findings :
12/29/23 CXR chest, findings:
There is no vascular congestion. Minimal bibasilar opacity is likely subsegmental atelectasis and/or minor scarring. The cardiomediastinal silhouettes are within the limits of normal. There is no pneumothorax, pleural effusion or mediastinal shift.
Procedure findings :
no procedures
Discharge Plan
-
Patient Disposition: Assisted Living
Discharge Diagnosis/Procedures: COPD exacerbation, dementia with behavioral disturbances, Anxiety, depression, hypothyroidism
Condition: Good
Diet: No restrictions
Activity: As tolerated
Driving Restrictions: As prior to admission
Bathing Restrictions: None
Referrals:
GAYATRI BRIGGS MD [Family Provider] - in one week
Additional Discharge Medication Instructions: take doxycycline 100 mg PO twice a day for 2 days
Take Prednisone as a taper: 40mg daily for 2 days, then 30 mg daily for 2 days, then 20 mg for 2 days, then 10mg for 2 days
Take Spiriva 1.25 mcg 2 puffs per day
Take nebulizer treatments 4 times a day as needed for wheezing/shortness of breath
Prescriptions:
New
ipratropium-albuterol 0.5 mg-3 mg(2.5 mg base)/3 mL Solution For Nebulization
3 ml inhalation R QID Qty: 90 0RF
doxycycline hyclate 100 mg Capsule
100 mg PO Q12 Qty: 4 0RF
Spiriva Respimat 1.25 mcg/actuation mist
2 puff inhalation DAILY Qty: 4 0RF
prednisone 10 mg Tablet
See Rx Instructions .ROUTE .COMPLEX Qty: 30 0RF
Rx Instructions:
Take By Mouth:
40 mg daily x2 days, 30 mg daily x2 days,
20 mg daily x2 days, 10 mg daily x2 days.
Continued
fluoxetine 40 mg Capsule
40 mg PO DAILY
donepezil 5 mg Tablet
5 mg PO DAILY@1900
levothyroxine [Synthroid] 50 mcg Tablet
50 mcg PO DAILY@0600
mirtazapine 15 mg Tablet
22.5 mg PO DAILY@1900
acetaminophen 325 mg Tablet
650 mg PO TIDPRN PRN (Reason: mild pain)
cetirizine 10 mg Tablet
10 mg PO DAILY
risperidone 0.25 mg tablet
0.25 mg PO BID
nystatin [Nystop] 100,000 unit/gram powder
1 applic TOPICAL BID
Patient Comments:
apply to right groin and under both breasts
buspirone 15 mg tablet
15 mg PO DAILY@1900
bupropion HCl 150 mg tablet extended release 24 hr
150 mg PO DAILY
Discharge Orders:
Discharge Patient (As Directed); Ordered 01/01/24
Ordered By: Jarett Lyman
Discharge Date and Time
Print Language: GERMAN
== END 2024-01-01 18:23 | disposition home or self-care (01) | DRG 191 ==
LOC: 4 WEST ACU 12:25
PROVIDERS: Nurse Practitioner Gerontology; ADMITTING PHYSICIAN Hospitalist; ATTENDING PHYSICIAN Hospitalist; EMERGENCY PHYSICIAN Emergency Medicine; FAMILY PHYSICIAN Internal Medicine
DX: J44.1 Chronic obstructive pulmonary disease with (acute) exacerbation (principal); F03.918 Unspecified dementia, unspecified severity, with other behavioral disturbance; F03.93 Unspecified dementia, unspecified severity, with mood disturbance; F03.94 Unspecified dementia, unspecified severity, with anxiety; J98.11 Atelectasis; F05 Delirium due to known physiological condition; E03.9 Hypothyroidism, unspecified; F17.210 Nicotine dependence, cigarettes, uncomplicated; R09.02 Hypoxemia; R06.89 Other abnormalities of breathing; Z79.890 Hormone replacement therapy; Z91.148 Patient's other noncompliance with medication regimen for other reason; Z11.52 Encounter for screening for COVID-19; Z78.1 Physical restraint status; Z91.199 Patient's noncompliance with other medical treatment and regimen due to unspecified reason
CPT/HCPCS: 71046; 80048; 80053; 83880; 84443; 84484; 85025; 87070; 87811; 92610; 93005; 94640; 97162; 97166; 99285

== ENCOUNTER 2024-03-27 12:24 | Emergency (ER) | payer OTHER, SELFPAY ==
[2024-03-27 12:54] VITALS: BP 142/78
[2024-03-27 12:59] VITALS: BP 141/74
[2024-03-27 13:00] VITALS: BP 145/88
[2024-03-27 14:03] LABS: % Basophils 0.4 % (0-2); % Eosinophils 0.6 % (0-6); % Immature Granulocytes 0.3 % (0-0.5); % Lymphocytes 26.1 % (20.5-51.1); % Monocytes 7.9 % (1.7-9.3); % Neutrophils 64.7 % (42.2-75.2); Absolute Lymphocytes 1.8 10^3/uL (1.2-3.4); Absolute Monocytes 0.6 10^3/uL (0.1-0.6); Absolute Neutrophils 4.5 10^3/uL (1.4-6.5); Hematocrit 38.7 % (37.0-47.0); Hemoglobin 12.5 g/dL (12.0-16.0); Mean Corp Hgb Conc. 32.3 g/dL (33.0-37.0); Mean Corpuscular Hgb 27.3 pg (27.0-31.0); Mean Corpuscular Volume 84.5 fL (81.0-99.0); Nucleated Red Blood Cells % 0 %; Platelet Count 243 10^3/uL (130-400); Red Blood Cell Count 4.58 10^6/uL (4.20-5.40); Red Cell Dist. Width 14.9 % (11.5-14.5)
--- NOTE | 2024-03-27 14:12 | ED.GENMED ---
History of Present Illness
General
Chief Complaint: Change in Mental Status
Source: patient, records and family
Time Seen by Provider: 03/27/24 13:58
History of Present Illness
History of Present Illness:
This patient is a 78-year-old female who was brought into [facility] emergency department by EMS from her assisted living facility due to increased confusion and combativeness. Patient reportedly is having episodes whereby she is leaving
the facility noted to be 'eloped x 3 today', noncompliance with medication and increased aggressiveness. Patient is overall poor historian. She does not recall leaving the facility today nor does she recall speaking with her sister on the phone
and being angry with her. Sister is bedside and offers valuable information. Patient states that physically she feels fine. She denies chest pain, shortness of breath, fever, chills, urinary symptoms, abdominal pain, nausea, vomiting, anorexia,
or other complaints
Past History
Past History
ED Past Medical History: COPD, Hypothyroidism, Psychiatric and Other (Dementia)
Social History
Tobacco: Smoker
Alcohol: None
Drug: None
Living: assisted living
Phy Exam
Physical Exam
Physical Exam:
GENERAL: Alert , in no apparent distress
EYE: pupils equal and reactive, conjunctive a pink, no photophobia
NECK: Supple, no significant adenopathy.
ENT: o/p clr, mmm.
CARDIAC: Regular rate and rhythm .
LUNGS: Clear breath sounds bilaterally, no acute respiratory distress, no wheezes/rales/rhonchi
ABDOMEN: Soft, without focal tenderness, no r/g, no cvat
NEUROLOGICAL: Alert and oriented to person and place but not time, accurately identifies her sister by name who is bedside,, no focal neuro deficits, cranial nerves II through XII intact, [id number] normal, motor 5 out of 5, sensory intact to
light touch
SKIN: Warm and dry, skin intact.
MUSCULOSKELETAL: No edema, well perfused.
PSYCH: Normal and appropriate interaction.
Course
Orders/Labs/Results
Orders:
Orders
03/27/24 13:55
CBC/With Diff [Complete Blood Count/With Diff] Urgent
Comprehensive Metabolic Panel Urgent
Urinalysis Reflex To Culture Urgent
Date Specimen was Collected: 03/27/24
Time Specimen was Collected: 13:54
Urine Microscopic Reflex Cult Urgent
Urine Culture Urgent
ANKITA Source: U
Specimen Description:
Date Specimen was Collected: 03/27/24
Time Specimen was Collected: 13:54
03/27/24 14:16
Electrocardiogram (*1) Urgent
Reason for Study: Other
Other Reason for Exam: confusion
EKG- Treatment ONCE
03/27/24 14:18
CT Head W/o Iv Contrast Urgent
Comment:
Reason For Exam: confusion
Abnormal Lab Results
03/27/24
13:55
MCHC 32.3 L g/dL
(33.0-37.0)
RDW 14.9 H %
(11.5-14.5)
MPV 11.0 H fL
(7.4-10.4)
BUN 25 H mg/dl
(7-17)
Creatinine 1.1 H mg/dL
(0.6-1.0)
Urine Ketones 2+ A
(Negative)
Ur Occult Blood Reflex Trace A
(Negative)
Leukocyte Esterase Rfl 1+ A
(Negative)
Urine Bacteria (Reflex) Few A
(Negative)
03/27/24 13:55
03/27/24 13:55
Vital Signs
Initial and Last Documented VS:
Initial Vital Signs
Temp Pulse Resp BP Pulse Ox
98.2 F 86 16 142/78 93
03/27/24 12:54 03/27/24 12:54 03/27/24 12:54 03/27/24 12:54 03/27/24 12:54
Last Documented Vital Signs
Temp Pulse Resp BP Pulse Ox
98.2 F 82 16 139/87 94
03/27/24 12:54 03/27/24 20:43 03/27/24 20:43 03/27/24 20:43 03/27/24 20:43
*Critical Care Note
Total Time (30-74mins, 75-104mins- exclusive of procedures): Not Applicable
Update Note
Update Note:
Patient presents to the Emergency Department with reported confusion/combativeness
Number and Complexity of Problems Addressed at the Encounter
� Chronic conditions affecting care:
� Acute Exacerbation and/or Progression of Chronic Illness:
� Differential Diagnosis includes: But not limited to worsening dementia, TMe, UTI, etc.
Amount and/or Complexity of Data to be Reviewed and Analyzed
� I performed an independent evaluation of and my interpretation is:
EKG:read byme, nsr, nl rate, nl axis
CT:read by radroxana flowers
Xrays:
Laboratory Studies:generaly unremarkable, sl BUN/CR elevation, encourage po hydration and recheck of labs later this week.
Other:
� Review of other/old records reveals: Patient was hospitalized for similar complaints June 2022, was admitted and medication revisions were done.
� Clinical information was obtained by an independent historian: Esequiel paperwork, sister who is bedside
� Prescriptions/Medications Considered but not given:
� Further testing considered but not performed:
Risk of Complications and/or Morbidity or Mortality of Patient Management
� Social determinants of health affecting care:
� Discussion with other providers (PCP, Hospitalists, Consultants, etc): 4:53 PM patient remains calm cooperative, no signs of aggression agitation or psychosis. Case discussed with patient and her sister who is still bedside.
Aware of labs, urine, preliminary CT report, etc. and in agreement with plan for patient to return to facility with consideration of modification of medications in the morning by her doctor. Case discussed with Fawn from [facility], patient
known to her, aware of above and is also in agreement with left inpatient back to facility.
� Escalation of care including admission/observation vs risk of discharge considered:
ED Attending Note
-
Portions of this chart may have been created with voice recognition software.� Occasional wrong word or��sound alike� substitutions may have occurred due to the inherent limitations of voice recognition software.
Discharge Plan
Departure
Patient Disposition: Home (Routine Discharge)
Date of Disposition: 03/27/24
Time of Disposition: 17:28
Patient with high blood pressure during this ER visit?: Yes
Condition: Good
Discharge Problem:
Dementia
Instructions: Dementia (DC), BLOOD PRESSURE
Prescriptions:
No Action
fluoxetine 40 mg Capsule
40 mg PO DAILY
donepezil 5 mg Tablet
5 mg PO DAILY@1900
levothyroxine [Synthroid] 50 mcg Tablet
50 mcg PO DAILY@0600
mirtazapine 15 mg Tablet
22.5 mg PO DAILY@1900
acetaminophen 325 mg Tablet
650 mg PO TIDPRN PRN (Reason: mild pain)
cetirizine 10 mg Tablet
10 mg PO DAILY
risperidone 0.25 mg tablet
0.25 mg PO BID
nystatin [Nystop] 100,000 unit/gram powder
1 applic TOPICAL BID
Patient Comments:
apply to right groin and under both breasts
buspirone 15 mg tablet
15 mg PO DAILY@1900
bupropion HCl 150 mg tablet extended release 24 hr
150 mg PO DAILY
ipratropium-albuterol 0.5 mg-3 mg(2.5 mg base)/3 mL Solution For Nebulization
3 ml inhalation R QID Qty: 90 0RF
doxycycline hyclate 100 mg Capsule
100 mg PO Q12 Qty: 4 0RF
Spiriva Respimat 1.25 mcg/actuation mist
2 puff inhalation DAILY Qty: 4 0RF
prednisone 10 mg Tablet
See Rx Instructions .ROUTE .COMPLEX Qty: 30 0RF
Rx Instructions:
Take By Mouth:
40 mg daily x2 days, 30 mg daily x2 days,
20 mg daily x2 days, 10 mg daily x2 days.
Referrals:
GAYATRI LIVINGSTON MD [Family Provider] - Tomorrow
Activity Restrictions/Additional Instructions:
SEE ATTACHED LAB RESULTS. YOU SHOULD BE ENCOURAGED TO DRINK LIQUIDS, AND HAVE YOUR BMP RECHECKED LATER THIS WEEK. IF YOU DEVELOP FEVER, CHEST PAIN, VOMITING, DIZZINESS, TROUBLE BREATHING OR OTHER WORRISOME SIGNS, GO TO THE ER IMMEDIATELY!
Interventions
Interventions:
*Risk Screen - Suicide Last Done: 03/27/24 12:54
*General Assessment Last Done: 03/27/24 12:54
*Neglect/Abuse Screening Last Done: 03/27/24 12:54
ED- Fall Risk Assessment Last Done: 03/27/24 16:59
*ED COVID-19 Vaccine History Last Done: 03/27/24 16:59
*Nursing Disposition Last Done: 03/27/24 20:44
ED- Neurological Assessment Last Done: 03/27/24 14:43
Discharge Date and Time
Discharge Date/Time: 03/27/24 20:46
Print Language: KOREAN
[2024-03-27 14:14] LABS: Urine Albumin Trace (Neg - Trace); Urine Bilirubin Negative (Negative); Urine Character Clear (Clear); Urine Color Yellow; Urine Glucose Negative (Negative); Urine Ketone 2+ (Negative); Urine Leukocyte 1+ (Negative); Urine Nitrite Negative (Negative); Urine Occult Blood Trace (Negative); Urine Specific Gravity 1.015 (<1.030); Urine Urobilinogen Negative (Neg - 1+); Urine pH 6.5 (5.0-9.0)
[2024-03-27 14:16] LABS: ALT (SGPT) 17 U/L (0-35); AST (SGOT) 22 U/L (14-36); Albumin 4.2 g/dl (3.5-5.0); Alkaline Phosphatase 122 U/L (38-126); Blood Urea Nitrogen 25 mg/dl (7-17); Calcium 9.3 mg/dl (8.4-10.2); Carbon Dioxide 27 mmol/L (22-30); Chloride 103 mmol/L (98-107); Glucose 96 mg/dl (70-99); Potassium 4.3 mmol/L (3.5-5.1); Sodium 145 mmol/L (135-145); Total Bilirubin 0.5 mg/dl (0.2-1.3); Total Protein 6.7 g/dl (6.3-8.2); eGFR 51.75
[2024-03-27 14:44] LABS: Urine Mucus Few; Urine Squamous Cell >30 /LPF (Few)
[2024-03-27 14:45] LABS: Urine Amorphous Seen
[2024-03-27 14:46] LABS: Urine Bacteria Few (Negative); Urine Red Blood Cell 0-2 /HPF (0-2)
[2024-03-27 17:01] VITALS: BP 127/76
[2024-03-27 20:43] VITALS: BP 139/87
== END 2024-03-27 20:46 ==
LOC: EMR 12:24
PROVIDERS: Emergency Medicine; EMERGENCY PHYSICIAN Emergency Medicine; FAMILY PHYSICIAN Internal Medicine
DX: F03.90 Unspecified dementia, unspecified severity, without behavioral disturbance, psychotic disturbance, mood disturbance, and anxiety (principal); J44.9 Chronic obstructive pulmonary disease, unspecified; E03.9 Hypothyroidism, unspecified; F17.200 Nicotine dependence, unspecified, uncomplicated; Z91.148 Patient's other noncompliance with medication regimen for other reason
CPT/HCPCS: 99284; 70450; 80053; 81003; 81015; 85025; 87086; 93005

== ENCOUNTER 2025-01-12 18:15 | Inpatient (IN) | payer OTHER, SELFPAY ==
[2025-01-12] VITALS (9 sets, daily range): BP systolic 74–144; BP diastolic 46–109; BMI 27.1
[2025-01-12 13:52] LABS: Hematocrit 35.9 % (37.0-47.0); Hemoglobin 11.6 g/dL (12.0-16.0); Mean Corp Hgb Conc. 32.3 g/dL (33.0-37.0); Mean Corpuscular Volume 87.1 fL (81.0-99.0); Nucleated Red Blood Cells % 0 %; Platelet Count 204 10^3/uL (130-400); Red Cell Dist. Width 14.6 % (11.5-14.5)
[2025-01-12 14:20] LABS: ALT (SGPT) 19 U/L (0-35); AST (SGOT) 20 U/L (14-36); Albumin 3.7 g/dl (3.5-5.0); Alkaline Phosphatase 92 U/L (38-126); Blood Urea Nitrogen 26 mg/dl (7-17); Calcium 9.0 mg/dl (8.4-10.2); Carbon Dioxide 29 mmol/L (22-30); Chloride 103 mmol/L (98-107); Glucose 90 mg/dl (70-99); Potassium 4.3 mmol/L (3.5-5.1); Sodium 138 mmol/L (135-145); Total Protein 6.2 g/dl (6.3-8.2); eGFR 57.66
[2025-01-12] MEDS: DILAUDID 0.5 MG IV ×2 (14:28→18:45)
[2025-01-12] MEDS: ZOFRAN 4 MG IV (14:28)
--- NOTE | 2025-01-12 14:40 | ED.MUSCINJ ---
HPI-Injury
General
Chief Complaint: Fall
Source: patient and [facility] records
Exam Limitations: dementia
Time Seen by Provider: 01/12/25 14:04
History of Present Illness-Injury
Initial Injury comments:
79-year-old female from [facility] with history of dementia, COPD, anxiety/depression, hypothyroid, presents after being found on the floor by staff. Patient states 'I fell.' She cannot recall how she fell or how long she was on the
floor. She is complaining of left hip area pain. She is laying with both knees flexed and seems to have significant pain in the left hip with palpation. She denies headache or neck pain. Denies back pain. Denies chest pain or trouble breathing,
denies abdominal pain.
Past History
Past History
ED Past Medical History: COPD, Hypothyroidism, Psychiatric (Anxiety/depression) and Other (Dementia)
Social History
Tobacco: Former smoker
Alcohol: None
Drug: None
Living: [facility]
Review of Systems
Review of Systems
Allergies reviewed?: Yes
All Other Systems: ROS reviewed and negative except as documented in HPI and ROS
Musculoskeletal: Reports other (Left hip area pain)
Phy Exam
Physical Exam
Physical Exam:
General: Alert but confused regarding her surroundings.
Skin: Warm, dry.
Head: Normocephalic, atraumatic.
Neck: Supple
Eye, Ear, Nose, Mouth, and Throat: Oral mucosa moist
Cardiovascular: Normal peripheral perfusion, no edema.
Respiratory: Respirations are non-labored.
Gastrointestinal: Abdomen nondistended. Nontender, normal bowel sounds
Back: No spinal bony tenderness.
Musculoskeletal: Patient experiences pain on movement of the left hip, moves right hip with no pain. Normal range of motion and no pain on movement of the arms.
Neurological: Alert and oriented to person but disoriented to place; unable to articulate the situation, due to dementia
Psychiatric: Cooperative, but displays confusion regarding current environment.
Injury Course
Orders/Labs/Results
Orders:
Orders
01/12/25 13:35
CMP [Comprehensive Metabolic Panel] Urgent
Complete Blood Count/With Diff Urgent
01/12/25 14:13
HYDROmorphone [Dilaudid] 0.5 mg .ROUTE .STK-MED ONE
Ondansetron Injectable [Zofran] 4 mg .ROUTE .STK-MED ONE
01/12/25 14:15
HYDROmorphone [Dilaudid] 0.5 mg IV NOW STA
Ondansetron Injectable [Zofran] 4 mg IV NOW STA
Hip, Left 2-3 Views [CR Hip - LT w/wo Pel 2-3 Vw*] Urgent
Comment:
Reason For Exam: fall, pain
Include a pelvis x-ray?: Yes
01/12/25 14:16
Urinalysis Reflex To Culture Urgent
01/12/25 14:47
Electrocardiogram (*1) Urgent
Reason for Study: Other
Other Reason for Exam: Fall, found on floor, dementia
EKG- Treatment ONCE
01/12/25 Dinner
Regular
01/12/25 15:44
CR Chest Portable - 1 View Urgent
Comment:
Reason For Exam: hip fx, hypoxia
Reason Study Needs to be Portable: Other
01/12/25 15:51
ORTHOPEDIC CONSULT Urgent
Consulting Provider: Jluis Acevedo
Was physician already notified: Yes
Reason for consult: L hip fracture
01/12/25 17:38
Admit/Transfer Patient As Directed
Co-Sign Provider:
Level of Care: Inpatient admission
Assign to:: Telemetry
Physician / Group: Dr. Luis F Morales/Hospitalists
Diagnosis: Hip Fracture
Reason for Telemetry: Arrhythmia
Date to Stop Telemetry: 01/15/25
Time to Stop Telemetry: 11:00
Reason for Hospitalization: Hip Fracture -- needs surgery
Expected length of stay greater than two midnights?: Yes
ELOS- Estimated Length of Stay in days: 3
I certify the patient meets the requirements for IP care: Yes
PRN Pain Medication Management As Directed
May give lesser potent ordered pain med per pt: Yes
preference::
Protocol:: Medication orders for pain may be administered in a
manner that supports deferring to patient preference
when the pt is:
- Requesting an ordered lesser potent pain medication.
Least to most potent pain medications are defined
as: acetaminophen < NSAID < tramadol < opioids
(morphine, oxycodone, hydromorphone).
- Requesting a lesser dose of the same medication IF
ORDERED.
- Requesting a less intrusive route of administration
if both routes are prescribed by the provider (PO <
IV).
01/12/25 17:40
Code Status As Directed
Resuscitation Status: Do not resuscitate
Reached after discussion with pt or family/Healthcare POA: Yes
DNR Bracelet Application ONCE
01/12/25 17:47
PSYCHIATRY CONSULT Routine
Consulting Provider: Alejandro Lawson
Was physician already notified: Yes
Reason for consult: Holding Risperdal perioperatively given risks -- when to resume?
01/12/25 18:42
HYDROmorphone [Dilaudid] 0.5 mg IV Q4HPRN PRN
01/12/25 20:12
0.9% Sodium Chloride 1000 ml [Nss] 1,000 ml IV 75 mls/hr
Acetaminophen [Tylenol] 650 mg PO TIDPRN PRN mild pain
Bisacodyl [Dulcolax] 10 mg RECTAL [id number] PRN
Docusate W/Senna [Senokot-S] 1 tablet PO BIDPRN PRN
Enoxaparin Sodium [Lovenox] 40 mg SC QPM
Lorazepam [Ativan] 0.25 mg PO Q6HPRN PRN ANXIETY
Oxycodone [Roxicodone] 5 mg PO Q4HPRN PRN
Polyethylene Glycol Powder [Miralax] 17 grams PO DAILYPRN PRN
01/12/25 20:12
Activity As Directed
Activity Level: Bedrest
Intake/ Output As Directed
Frequency: Per unit guidelines
Pneumatic Compression Sleeves As Directed
Type: Knee high
Vital Signs As Directed
Frequency: Per unit guidelines
DX Deep Vein Thrombosis Video Routine
01/12/25 21:00
Miconazole Nitrate [Desenex/Mitrazol/Zeasorb] See Dose Instructions TOPICAL BID
01/12/25 22:00
Melatonin 5 mg PO HS
01/13/25 Breakfast
NPO
Allow oral meds: Yes
Allow clear liquids: Sips of Clears
NPO with Ice Chips: Yes
Basic Metabolic Panel IN AM
Complete Blood Count/No Diff IN AM
Magnesium IN AM
01/13/25 08:00
Bupropion(12Hr)Sustain Release [WELLBUTRIN SR (12 hour sustained release)] 150 mg PO DAILY
Fluoxetine HCl [Prozac] 40 mg PO DAILY
Tiotropium [place] 2.5 Mcg [Spiriva Respimat 2.5 Mcg] 2 puff INH R DAILY
01/14/25 06:00
Basic Metabolic Panel IN AM
Complete Blood Count/No Diff IN AM
01/15/25 06:00
Basic Metabolic Panel IN AM
Complete Blood Count/No Diff IN AM
01/15/25 11:00
DC Protocol for Telemetry ONCE
01/16/25 06:00
Basic Metabolic Panel IN AM
Complete Blood Count/No Diff IN AM
Abnormal Lab Results
01/12/25
13:35
RBC 4.12 L 10^6/uL
(4.20-5.40)
Hgb 11.6 L g/dL
(12.0-16.0)
Hct 35.9 L %
(37.0-47.0)
MCHC 32.3 L g/dL
(33.0-37.0)
RDW 14.6 H %
(11.5-14.5)
MPV 10.9 H fL
(7.4-10.4)
Absolute Monos (auto) 1.1 H 10^3/uL
(0.1-0.6)
Lymphocytes % 17.0 L %
(20.5-51.1)
Monocytes % 12.5 H %
(1.7-9.3)
BUN 26 H mg/dl
(7-17)
Total Protein 6.2 L g/dl
(6.3-8.2)
01/12/25 13:35
01/12/25 13:35
MDM/Problems Addressed
Differential Diagnosis Includes:
- Hip fracture
- Contusion or muscle strain
- Syncopal episode
- Urinary tract infection
- Electrolyte imbalance
- Dehydration
- Hypoglycemia
MDM/Problems Addressed:
79-year-old female from [facility] with history of dementia, COPD, anxiety/depression, hypothyroid, presents after being found on the floor by staff. Patient states 'I fell.' She cannot recall how she fell or how long she was on the
floor. She is complaining of left hip area pain. She is laying with both knees flexed and seems to have significant pain in the left hip with palpation. She denies headache or neck pain. Denies back pain. Denies chest pain or trouble breathing,
denies abdominal pain.
Afebrile, moderate distress due to left hip area pain
CBC with no clinically significant abnormality
CMP no clinically significant abnormality
3:40 PM:
Left hip x-ray: Displaced Subcapital fracture
Sister at bedside and informed.
Hospitalist and Orthopedics notified of admission.
Chronic conditions affecting care: COPD, Neurological disorder (Dementia) and Psychiatric illness (Anxiety/depression)
*Radiology
Radiology exam reviewed: preliminary read by ED provider (Displaced subcapital left hip fracture)
*Pulse Oximetry
SaO2: 88
Oxygen Mode of Delivery: Room air
Patient hypoxic: yes (placed on 2L n.c. pulse ox 91% on 2L (COPD))
*Critical Care Note
Total Time (30-74mins, 75-104mins- exclusive of procedures): Not Applicable
ED Attending Note
-
Portions of this chart may have been created with voice recognition software.� Occasional wrong word or��sound alike� substitutions may have occurred due to the inherent limitations of voice recognition software.
Discharge Plan
Departure
Patient Disposition: Admit
Date of Disposition: 01/12/25
Time of Disposition: 15:51
Admit to: Med/Surg
Presentation/result/management discussed w/ accepting MD/DO: Hospitalist
Condition: Fair
Discharge Problem:
Fall, Closed fracture of left hip
Interventions
Interventions:
*Risk Screen - Suicide Last Done: 01/12/25 13:28
*General Assessment Last Done: 01/12/25 13:28
*Neglect/Abuse Screening Last Done: 01/12/25 13:28
*ED- Fall Risk Assessment Last Done: 01/12/25 19:40
*ED COVID-19 Vaccine History Last Done: 01/12/25 13:28
*Nursing Disposition Last Done: 01/12/25 19:40
ED-Musculoskeletal Assessment Last Done: 01/12/25 17:39
ED- Neurological Assessment Last Done: 01/12/25 13:28
ED-Skin Assessment Last Done: 01/12/25 13:33
Discharge Date and Time
Discharge Date/Time: 01/12/25 19:40
--- NOTE | 2025-01-12 16:38 | HPS.HSE ---
Family Physician
-
Family Physician: NOT KNOW UNKNOWN - PT DOES
Chief Complaint
-
Hip Pain
History of Present Illness
79-year-old female from [facility] with history of dementia, COPD, anxiety/depression, hypothyroid, presented after being found on the floor by staff. Patient stated 'I fell' but she denied passing out/losing consciousness. She
cannot recall how she fell or how long she was on the floor. She is complaining of left hip area pain. She denied fever, chest pain, shortness of breath, headache, neck pain, back pain or abdominal pain.
Medical History
Past Medical History
Past Medical History: Reports Other (As per HPI above)
Past Surgical History: Reports None
Social History
Tobacco: Former Smoker
Alcohol: None
Drug: None
Family History
Family History: Not pertinent
Allergies / Home Medications
Allergies reflects when Allergies were last updated in [facility].
Home Medications with original date entered in [facility]
Allergy/Medication List:
Allergies
Allergy/AdvReac Type Severity Reaction Status Date / Time
No Known Allergies Allergy Verified 03/27/24 12:58
Home Medications
fluoxetine 40 mg capsule 40 mg PO DAILY Mental Health/Anxiety 07/05/22
acetaminophen 325 mg tablet 650 mg PO TIDPRN PRN mild pain 12/29/23
nystatin 100,000 unit/gram topical powder (Nystop) 1 applic topical BID RIGHT GROIN & B/L BREASTS 12/29/23
bupropion HCl 150 mg tablet,12 hr sustained-release (Wellbutrin SR) 150 mg PO DAILY 01/12/25
lorazepam 0.5 mg tablet 0.25 mg PO Q6HPRN PRN ANXIETY 01/12/25
melatonin 5 mg tablet 5 mg PO HS 01/12/25
risperidone 1 mg tablet (Risperdal) 1 mg PO BID 01/12/25
umeclidinium 62.5 mcg/actuation blister powder for inhalation (Incruse Ellipta) 1 inh inhalation R DAILY 01/12/25
Review of Systems
-
A 12 point ROS was completed and negative except as noted: Yes
Physical Exam
Vital Signs
Vital Signs
Temp Pulse Resp BP Pulse Ox
98.0 F 90 17 118/91 93
01/12/25 13:28 01/12/25 16:00 01/12/25 16:00 01/12/25 16:00 01/12/25 15:30
Physical Exam
General: No Apparent Distress and Comfortable
HEENT: NormoCephalic and Moist mucous membranes
Respiratory: Clear
Cardiac: S1/S2 and Regular Rhythm
GI: Soft, Non Tender and Normal Bowel Sounds
Musculoskeletal: No Cyanosis, No Edema and Other (Left Hip ROM with severe pain. Bilateral Lower Extremities Neuro-vascularly Intact Distally.)
Skin: Warm and Dry
Neuro: Awake and Alert
Psych: Calm and Apparent Dementia
Laboratory Results
-
01/12/25 13:35
01/12/25 13:35
Laboratory Results
Total Bilirubin 0.7 mg/dl (0.2-1.3) 01/12/25 13:35
AST 20 U/L (14-36) 01/12/25 13:35
ALT 19 U/L (0-35) 01/12/25 13:35
Alkaline Phosphatase 92 U/L (38-126) 01/12/25 13:35
Impression/Plan
-
Assessment/Plan
Presentation after Fall and Left Hip Pain
Displaced Left Subcapital Hip fracture
-Fall is likely from patient's dementia and recent gait abnormalities with forward hip flexed gait
-Patient said that she did not lose consciousness
-NWB for now
-Patient is at elevated risk of complications given her age and COPD history, but the risks of not having surgery outweigh the benefits
-Orthopedics consulted; surgery is planned for 01/12/25
-NPO after midnight
Chronic Bilateral Hip Pain
-Orthopedics on the case, their consult is appreciated
COPD (not on home oxygen)
-Stable. Continue to monitor.
Generalized Anxiety Disorder
Depression
-Continue Fluoxetine but watch for bleeding given that Aspirin will likely be used post-op
-Continue Bupropion
Dementia with psychosis
-Patient lives at [facility]
-Hold Risperdal for now given risk of potentiate sedative and hypotensive effects of anesthetics and opiate analgesics
-Risperidone also undergoes CYP2D6 and some CY drug metabolism and can interact with other medications used perioperatively
-QTc 435
-Psychiatry evaluation
History of Hypothyroidism
-No longer on thyroid replacement medication
Former Smoker
DVT Prophylaxis: Lovenox
Code Status: DNR (At the time of admission, I confirmed this multiple times with patient's sister)
--- NOTE | 2025-01-12 20:45 | PTCARENOTE ---
Hallie Ramirez a 79-year-old female from [facility] in [place] arrived from ED at 20:10 after a fall unwitnessed by staff at [facility]. A L Hip XRay of pt shows a complete/displaced subcapital LEFT hip fracture. PMH dementia,
COPD, anxiety/depression, and hypothyroid. Pt scheduled for L [facility] Hip om 01/13 at 14:[address] Jluis Acevedo. Pt not alert to person, place or time, bed alarm, Purewick and static overlay in place. Pt instructed on use of call light, pt near
nursing unit, pt resting comfortable with frequent checks, bed in lowest position, care ongoing.
[2025-01-12] MEDS: DESENEX/MITRAZOL/ZEASORB 1 APPLIC TOPICAL (20:55)
[2025-01-12] MEDS: LOVENOX 40 MG SC (20:55)
[2025-01-12] MEDS: NSS 1000 IV (20:55)
[2025-01-12] MEDS: MELATONIN 5 MG PO (21:31)
[2025-01-13] VITALS (9 sets, daily range): BP systolic 84–136; BP diastolic 53–65
[2025-01-13] MEDS: DILAUDID 0.5 MG IV ×2 (04:55→21:47)
[2025-01-13 06:00] LABS: Urine Character Cloudy (Clear)
[2025-01-13 06:11] LABS: Urine Squamous Cell >30 /LPF (Few)
[2025-01-13 06:13] LABS: Urine White Cell 16-20 /HPF (0-5)
[2025-01-13 07:12] LABS: Hematocrit 35.8 % (37.0-47.0); Hemoglobin 11.7 g/dL (12.0-16.0); Mean Corp Hgb Conc. 32.7 g/dL (33.0-37.0); Mean Corpuscular Volume 88.8 fL (81.0-99.0); Platelet Count 205 10^3/uL (130-400); Red Cell Dist. Width 14.5 % (11.5-14.5)
[2025-01-13] MEDS: WELLBUTRIN SR (12 hour sustained release) PO ×2 (07:24→07:30)
[2025-01-13] MEDS: DESENEX/MITRAZOL/ZEASORB 1 APPLIC TOPICAL ×2 (07:24→20:09)
[2025-01-13] MEDS: PROZAC 40 MG PO (07:24)
[2025-01-13 07:53] LABS: Blood Urea Nitrogen 18 mg/dl (7-17); Calcium 8.6 mg/dl (8.4-10.2); Carbon Dioxide 27 mmol/L (22-30); Chloride 105 mmol/L (98-107); Estimated Creatinine Clearance 64 ml/min; Glucose 104 mg/dl (70-99); Magnesium 1.9 mg/dl (1.6-2.3); Potassium 4.2 mmol/L (3.5-5.1); Sodium 137 mmol/L (135-145); eGFR > 60.00
[2025-01-13] MEDS: SPIRIVA RESPIMAT 2.5 MCG 2 PUFF INH (07:59)
--- NOTE | 2025-01-13 08:37 | CON.ORTHO ---
Addendum entered and electronically signed by Jluis Acevedo MD 01/13/25 15:05:
I agree with the above note. I evaluated the patient at bedside. 79-year-old female with advanced dementia who presented after a fall with the left subcapital femoral neck fracture. I spoke with the patient's daughter and her sister who is at
bedside. We discussed treatment options including both nonsurgical and surgical treatments. We discussed the morbidity associated with nonsurgical treatment of a hip fracture. We discussed that left hip hemiarthroplasty could help her mobilize
more quickly and could be palliative to help alleviate pain with caregiving and hygiene. We discussed perioperative risks and the recovery process. Shared decision was to proceed with left hip hemiarthroplasty. We discussed that either I or my
colleague Dr. Fitzpatrick would be available to treat pending OR availability.
Original Note:
Consultation
-
Date/Time Consultation Requested: 01/12/2025; 1500
Date/Time Consultation Performed: 01/13/2025; 0730
Requesting Provider: Gretchen Navarro
Performing Provider: Vivienne Lemos PA-C / Dr. Jluis Acevedo
Reason for Consultation: Left hip fracture
Consultation - Orthopedics
History
Ms. Ramirez is a 79 year old female with PMH of dementia, COPD, anxiety/depression, hypothyroid seen today for her left hip. She is pleasantly confused this morning per her baseline. She is a resident at [facility], and was found down
by staff. She cannot recall how she fell or how long she was on the floor. She was transported to ED via EMS where x-rays revealed a displaced subcapital femur fracture. She is resting comfortably in bed this morning, and denies any pain at
present.
Allergies / Home Medications
Allergy/AdvReac Type Severity Reaction Status Date / Time
No Known Allergies Allergy Verified 03/27/24 12:58
�Medication �Instructions �Recorded
fluoxetine 40 mg capsule 40 mg PO DAILY Mental 07/05/22
Health/Anxiety
acetaminophen 325 mg tablet 650 mg PO TIDPRN PRN mild pain 12/29/23
nystatin 100,000 unit/gram topical 1 applic topical BID RIGHT GROIN & 12/29/23
powder (Nystop) B/L BREASTS
bupropion HCl 150 mg tablet,12 hr 150 mg PO DAILY 01/12/25
sustained-release (Wellbutrin SR)
lorazepam 0.5 mg tablet 0.25 mg PO Q6HPRN PRN ANXIETY 01/12/25
melatonin 5 mg tablet 5 mg PO HS 01/12/25
risperidone 1 mg tablet (Risperdal) 1 mg PO BID 01/12/25
umeclidinium 62.5 mcg/actuation 1 inh inhalation R DAILY 01/12/25
blister powder for inhalation
(Incruse Ellipta)
Vital Signs / Lab Results
Temp Pulse Resp BP Pulse Ox
97.7 F 75 16 110/64 98
01/13/25 03:55 01/13/25 08:03 01/13/25 08:03 01/13/25 03:55 01/13/25 08:03
01/13/25 06:28
01/13/25 06:28
XR Left Hip IMPRESSION:
Complete/displaced subcapital LEFT hip fracture.
Directed exam of the left lower extremity reveals no erythema, ecchymosis, edema or lesions. Tenderness about the anterior and lateral hip. Thigh soft and compressible. ROM deferred secondary to known fracture. Positive log roll. Calf soft and
nontender. Patient able to wiggle toes, plantar and dorsiflex ankle. Neurovascularly intact distally.
Assessment / Plan
Left subcapital femur fracture
--Unfortunately, Hallie sustained a fracture of her left femur in her fall. I recommend proceeding with a left hip hemiarthroplasty. I was able to speak with her sister/POA, Tracee Booker, on the phone this morning. We discussed the risks, benefits,
alternatives, recovery process and potential complications. She verbalized understanding and would like to proceed with surgery. She provided verbal consent over the phone for surgery and blood transfusion. Consent placed in patient chart. We will
plan for OR this afternoon under the direction of Dr. Acevedo. Patient optimized medically per hospitalist.
--NPO until surgery.
--NWB to LLE until surgery.
--Pain control prn.
--T+S pending.
--ABX and irrigation ordered to OR.
--Orthopedics will continue to follow along.
[2025-01-13] MEDS: ANCEF 10 IV (09:31)
[2025-01-13] MEDS: NSS 1000 IV ×3 (10:05→21:33)
--- NOTE | 2025-01-13 11:00 | CON.MD ---
Consultation - Medical
-
patient seen chart reviewed. spoke with nursing teacher who reported patient has been cooperative . spoke with sister on phone who is patient's mpoa. this consult being done today january 13 2025. the patient is known to me. she was seen in spring of
2021 in the emergency room given hx depression and i recommended at that time to continue antidepressant medication. she was seen by dr stephens in june 2022 and had developed paranoia. she was started on risperdal current dose one mg bid. she
is also taking wellbutrin 150 mg q day and prozac 40 mg daily. she had been residing in assisted living but cognitive capacity declined and she required memory care . she is now at [facility] and sister tells me that staff have reported her
cognitive decline continues. sister reported ms gilbert is depressed. the paranoia has not been evident for some months . she is here bc of fall which resulted in a hip fx. she is scheduled for surgery later today. the patient while pleasant was a
very poor historian. she could not tell me where she was, why she was here, where she lived. nor was she oriented to time. she did know her name. she also answered yes when i asked if she were sad at times. she said she also could be 'happy ' at
other moments. she denies that she hears voices or that she is fearful for example of people stealing her money which she had said in the past while here at .
past psych hx patient has hx of depression and anxiety. she was hosp psychiatrically many years ago when h left her. she has had sporadic therapy.
medical hx see above recent fall w hip fx patient has copd hypothyroid had been a smoker cat brain done in 2023 showed mild atrophy no acute changes hgb 11.7 bun 18 ecg ok qtc urine with wbc culture pending bp 110/64 afebrile
fh mom may have had psych illness
substance abuse none
social resides in memory care sister visits twice weekly and is supportive. from sister...patient had been living in [facility] but partner was gravely injured in an accidetn and she could not manage on her own so came to [place]. has a d who lives in the
[facility]. 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
mse patient sitting calmly in bed. she was pleasant and tried to answer questions but very cognitively impaired. oriented to person only. speech sparse and soft. could not really assess thought process as she said very little. no overt psychosis
mood was neutral insight judgment lacking impaired by dementia process
dx by hx unspecified depression dementia with hx paranoia
plan when i saw patient in 2021 i felt she had mild cognitive impairment. at this point she has progressed with dementia well beyond this. would suggest restarting risperdal at a tiny dose after surgery eg o.25 mg bid inc depending on tolerance
given that dr stephens found her to be quite paranoid in her exam and sister feels that has dissipated with risperdal and i would not want the paranoia to recur given that she seems to have made a reasonable adjustment at [facility]. psych will
see her tomorrow and assess.. continue with antidep as sister feels she is depressed and patient also answers yes re depression. i did note some cogwheeling rigidity left wrist much greater than right where it was really not apparent. usually if
it is from meds it is rather symmetric. patient's hands appear to be very arthritic. would ask hospitalist to assess. check b12 folate tsh if not already done await results of urine culture.
--- NOTE | 2025-01-13 11:55 | CM ---
Reviewed the chart notes and spoke with Denia JEAN at [facility] ([phone]). Per Denia, patient ambulates independently at the facility. The patient is scheduled for OR today to repair fx hip. No history of VN or SNF.
CM continues to be available to patient/family and is monitoring medical plan for needs at discharge.
Plan: Discharge plans will depend on the patient's progress.
[2025-01-13] MEDS: ASPIRIN PO (18:57)
--- NOTE | 2025-01-13 19:17 | W.PN.HOSP.TC ---
Today's Communication/Plan
-
Hip Surgery today
Assessment / Plan
Assessment / Plan
Physical Exam
General: No Apparent Distress and Comfortable
HEENT: Normocephalic and Moist mucous membranes
Respiratory: Clear
Cardiac: S1/S2 and Regular Rhythm
GI: Soft, Non Tender and Normal Bowel Sounds
Musculoskeletal: No Cyanosis, No Edema and Other (Left Hip ROM with severe pain. Bilateral Lower Extremities Neuro-vascularly Intact Distally.)
Skin: Warm and Dry
Neuro: Awake and Alert
Psych: Calm and Apparent Dementia
Assessment/Plan
Presentation after Fall and Left Hip Pain
Displaced Left Subcapital Hip fracture
-Fall is likely from patient's dementia and recent gait abnormalities with forward hip flexed gait
-Patient said that she did not lose consciousness
-NWB for now
-Patient is at elevated risk of complications given her age and COPD history, but the risks of not having surgery outweigh the benefits
-Orthopedics consulted; surgery is planned for today
Chronic Bilateral Hip Pain
-Orthopedics on the case, their consult is appreciated
COPD (not on home oxygen)
-Stable. Continue to monitor.
Generalized Anxiety Disorder
Depression
-Continue Fluoxetine but watch for bleeding given that Aspirin will likely be used post-op
-Continue Bupropion
Dementia with psychosis
-Patient lives at [facility]
-Initially held Risperdal given risk of potentiate sedative and hypotensive effects of anesthetics and opiate analgesics and Risperidone also undergoes CYP2D6 and some CY drug metabolism and can interact with other medications used
perioperatively
-Will resume Risperdal soon as per psychiatry
-QTc 435
-Psychiatry evaluation
History of Hypothyroidism
-No longer on thyroid replacement medication
Former Smoker
DVT Prophylaxis: Aspirin 325 mg daily
Code Status: DNR (At the time of admission, I confirmed this multiple times with patient's sister)
Anticipated Discharge: 24 - 48 hours
Subjective/Interval History
-
Date of Service: January 13, 2025
Patient was seen and examined. No new symptoms or complaints.
Objective Data
-
Labs:
Laboratory Results
01/13/25
06:28
Sodium 137
Potassium 4.2
Chloride 105
Carbon Dioxide 27
BUN 18 H
Creatinine 0.7
Glucose 104 H
Calcium 8.6
Vital Signs:
Vital Signs
Temp Pulse Resp BP Pulse Ox
97.6 F 94 17 84/65 95
01/13/25 18:35 01/13/25 18:15 01/13/25 18:15 01/13/25 18:15 01/13/25 18:15
I&O
01/12/25 01/13/25 01/14/25
06:59 06:59 06:59
Intake Total 850 / 850 100 / 100
Output Total 800 / 800 700 / 700
Balance 50 / 50 -600 / -600
[2025-01-13] MEDS: SENOKOT 17.2 MG PO (20:09)
[2025-01-13] MEDS: COLACE 100 MG PO (20:09)
[2025-01-13] MEDS: MELATONIN 5 MG PO (21:33)
[2025-01-14] MEDS: ANCEF 5 IV ×2 (00:17→08:15)
[2025-01-14 03:34] VITALS: BP 120/56
[2025-01-14 06:47] LABS: Hematocrit 39.1 % (37.0-47.0); Hemoglobin 12.3 g/dL (12.0-16.0); Mean Corp Hgb Conc. 31.5 g/dL (33.0-37.0); Mean Corpuscular Volume 89.7 fL (81.0-99.0); Platelet Count 238 10^3/uL (130-400); Red Cell Dist. Width 14.2 % (11.5-14.5)
[2025-01-14 06:48] LABS: Blood Urea Nitrogen 15 mg/dl (7-17); Calcium 8.6 mg/dl (8.4-10.2); Carbon Dioxide 25 mmol/L (22-30); Chloride 103 mmol/L (98-107); Estimated Creatinine Clearance 64 ml/min; Glucose 127 mg/dl (70-99); Potassium 4.9 mmol/L (3.5-5.1); Sodium 139 mmol/L (135-145); eGFR > 60.00
[2025-01-14 06:51] LABS: Urine Character Clear (Clear)
[2025-01-14] MEDS: DILAUDID 0.5 MG IV ×3 (07:05→20:59)
[2025-01-14] MEDS: ATIVAN 0.25 MG PO ×2 (07:19→20:46)
[2025-01-14 07:35] VITALS: BP 126/59
--- NOTE | 2025-01-14 07:42 | W.PN.HOSP.TC ---
Today's Communication/Plan
-
See plan
Assessment / Plan
Assessment / Plan
Physical Exam
General: No Apparent Distress and Comfortable
HEENT: Normocephalic and Moist mucous membranes
Respiratory: Clear
Cardiac: S1/S2 and Regular Rhythm
GI: Soft, Non Tender and Normal Bowel Sounds
Musculoskeletal: No Cyanosis, No Edema and Other (Left Hip ROM with severe pain. Bilateral Lower Extremities Neuro-vascularly Intact Distally.)
Skin: Warm and Dry
Neuro: Awake and Alert
Psych: Calm and Apparent Dementia
Assessment/Plan
Presentation after Fall and Left Hip Pain
Displaced Left Subcapital Hip fracture status post left hip hemiarthroplasty (on 01/13/25) under the direction of Dr. Fitzpatrick
-Fall is likely from patient's dementia and recent gait abnormalities with forward hip flexed gait
-Patient said that she did not lose consciousness
-WBAT to LLE with walker. THPs x6-8 weeks. We appreciate the assistance of PT/OT.
-ASA 325 mg daily x4 weeks for DVT ppx.
-Pain control PRN. Ice and elevation for pain and edema control.
-Dressing to remain in place until 7-10 days post-op. It appears she has been picking at the bandage. May change as needed. Staple removal at 2 weeks post-op.
Chronic Bilateral Hip Pain
-Orthopedics on the case, their consult is appreciated
COPD (not on home oxygen)
-Stable. Continue to monitor.
Generalized Anxiety Disorder
Depression
-Continue Fluoxetine but watch for bleeding given that Aspirin will likely be used post-op
-Continue Bupropion
Dementia with psychosis
-Patient lives at [facility]
-Initially held Risperdal given risk of potentiate sedative and hypotensive effects of anesthetics and opiate analgesics and Risperidone also undergoes CYP2D6 and some CY drug metabolism and can interact with other medications used
perioperatively
-Resumed small dose Risperdal
-QTc 435
-Psychiatry evaluation
-As needed Zyprexa for agitation given patient spits out SL or PO Ativan. And IV Ativan is in short supply.
History of Hypothyroidism
-No longer on thyroid replacement medication
Former Smoker
DVT Prophylaxis: Aspirin 325 mg daily
Code Status: DNR (At the time of admission, I confirmed this multiple times with patient's sister)
Anticipated Discharge: 24 - 48 hours
Subjective/Interval History
-
Date of Service: January 14, 2025
Patient was seen and examined. She had periods of agitation throughout the day today.
Objective Data
-
Labs:
Laboratory Results
01/14/25
06:03
WBC 15.4 H
Hgb 12.3
Hct 39.1
Plt Count 238
Sodium 139
Potassium 4.9
Chloride 103
Carbon Dioxide 25
BUN 15
Creatinine 0.7
Glucose 127 H
Calcium 8.6
Vital Signs:
Vital Signs
Temp Pulse Resp BP Pulse Ox
97.8 F 99 16 120/56 93
01/14/25 03:34 01/14/25 03:34 01/14/25 03:34 01/14/25 03:34 01/14/25 03:34
I&O
01/13/25 01/14/25 01/15/25
06:59 06:59 06:59
Intake Total 850 / 850 100 / 100
Output Total 800 / 800 1400 / 1400
Balance 50 / 50 -1300 / -1300
[2025-01-14] MEDS: COLACE PO ×2 (07:48→21:06)
[2025-01-14] MEDS: ASPIRIN PO (07:48)
[2025-01-14] MEDS: WELLBUTRIN SR (12 hour sustained release) PO (07:48)
[2025-01-14] MEDS: PROZAC PO (07:48)
[2025-01-14] MEDS: SENOKOT PO ×2 (07:48→21:06)
[2025-01-14] MEDS: SPIRIVA RESPIMAT 2.5 MCG INH (07:49)
[2025-01-14 07:50] LABS: Urine Squamous Cell 0-2 /LPF (Few)
[2025-01-14 07:51] LABS: Urine White Cell 16-20 /HPF (0-5)
[2025-01-14 07:51] LABS: Folate 7.1 ng/ml (2.76-20); Vitamin B12 277 pg/ml (239-931)
[2025-01-14] MEDS: ZYPREXA 2.5 MG IM ×2 (08:18→16:08)
[2025-01-14] MEDS: DESENEX/MITRAZOL/ZEASORB 1 APPLIC TOPICAL ×2 (08:20→20:54)
[2025-01-14] MEDS: STERILE WATER FOR INJECTION 2.1 ML IM (08:22)
--- NOTE | 2025-01-14 08:45 | W.PN.ORTHO ---
Today's Communication / Plan
-
79 yo F POD1 left hip hemiarthroplasty under the direction of Dr. Fitzpatrick
--WBAT to LLE with walker. THPs x6-8 weeks. We appreciate the assistance of PT/OT.
--Recommend ASA 325 mg daily x4 weeks for DVT ppx.
--Pain control prn. Ice and elevation for pain and edema control.
--Hgb 12.3 this AM.
--Dressing to remain in place until 7-10 days post-op. It appears she has been picking at the bandage. May change as needed. Staple removal at 2 weeks post-op.
--Case management consult for dc planning.
--Orthopedics will continue to follow along.
Assessment
.
Distal Motor Intact: Yes
Dressing:
Clean, dry and intact.
Plan
.
Surgery / Date: Left hip hemiarthroplasty, Nanette, 01/13/2025
DVT Prophylaxis: Aspirin
Activity:
Out of bed.
PT/OT
Subjective
.
.:
Ms. Ramirez is POD 1 following her left hip hemiarthroplasty performed by Dr. Fitzpatrick. She is resting comfortably in bed this morning. She is confused per her baseline, but denies any pain in the hip.
Vital Signs and Labs
.
Vital Signs and Labs:
Lab Results
01/14/25 06:03
01/14/25 06:03
Temp Pulse Resp BP Pulse Ox
97.8 F 99 16 120/56 93
01/14/25 03:34 01/14/25 03:34 01/14/25 03:34 01/14/25 03:34 01/14/25 03:34
Physical Exam
-
Directed exam of the left lower extremity reveals surgical dressing clean, dry and intact. It does appear she has been picking at the bandage. Mild tenderness about the hip. Thigh soft and compressible. Calf soft and nontender. Patient able to
wiggle toes, plantar and dorsiflex ankle. NVID.
--- NOTE | 2025-01-14 09:07 | PTCARENOTE ---
S RN received patient from Night RN, Patient screaming in room with IV in her hand blood all over, Kurtz tubing , IV tubing in her mouth. Patient verbalizing 'Please don't kill me, stop!'
B patient admitted with L hip fracture POD #1 LEFT MELODY
A see online database
R RN attempted to reorient patient, patient trying to hit and bite nurse. 0.25 SQ ativan given, patient spit med out onto nurses face. Morning oral meds were held due to patient refusing to open mouth and spitting. Dr. Morales made aware. RN
applied B/L wrist restraints with easy release. RN also obtained an order for IM Zyprexa. Patient educated on medication being given at the time and attempted to reorient pt., RN was unsuccessful. Kurtz tubing was reattached. Patient sheets and gown
were changed. Repositioned in bed. IV fluids and Tele pack reattached.
[2025-01-14 11:25] VITALS: BP 134/63
--- NOTE | 2025-01-14 13:38 | W.PN.UPDATE ---
Update Note
Progress Note Update
Patient was rather anxious and seemed to be under stress although presently is not agitated or combative. She was however aggressive with staff this AM and is presently in soft restraints. Shes was given olanzapine 2.5 mg im which helped, presently
is on Risperdal 0.25 mg bid which helped with paranoid thoughts in the past.
She has significant cognitive impairment so I am not able to have a meaningful conversation with her.
In addition to her baseline status she may have postoperative delirium which is hopefully resolving.
For now I would continue this dose and will F/U.
[2025-01-14 15:56] VITALS: BP 138/65
[2025-01-14 19:38] VITALS: BP 114/55
[2025-01-14] MEDS: NSS 1000 IV (20:31)
[2025-01-14] MEDS: RISPERDAL 0.25 MG PO (20:43)
[2025-01-14] MEDS: MELATONIN 5 MG PO (20:46)
[2025-01-14 23:02] VITALS: BP 129/59
[2025-01-14] MEDS: CYANOCOBALAMIN 1000 MCG IM (23:25)
[2025-01-15] MEDS: DILAUDID 0.5 MG IV (02:48)
[2025-01-15 03:08] VITALS: BP 128/65
[2025-01-15 05:34] LABS: Hematocrit 31.0 % (37.0-47.0); Hemoglobin 10.2 g/dL (12.0-16.0); Mean Corp Hgb Conc. 32.9 g/dL (33.0-37.0); Mean Corpuscular Volume 86.4 fL (81.0-99.0); Platelet Count 204 10^3/uL (130-400); Red Cell Dist. Width 14.2 % (11.5-14.5)
[2025-01-15 05:58] LABS: Blood Urea Nitrogen 18 mg/dl (7-17); Calcium 8.1 mg/dl (8.4-10.2); Carbon Dioxide 26 mmol/L (22-30); Chloride 105 mmol/L (98-107); Estimated Creatinine Clearance 56 ml/min; Glucose 94 mg/dl (70-99); Magnesium 2.0 mg/dl (1.6-2.3); Potassium 4.0 mmol/L (3.5-5.1); Sodium 137 mmol/L (135-145); eGFR > 60.00
[2025-01-15] MEDS: SPIRIVA RESPIMAT 2.5 MCG 2 PUFF INH (07:52)
[2025-01-15 07:55] VITALS: BP 124/67
--- NOTE | 2025-01-15 08:01 | W.PN.UPDATE ---
Update Note
Progress Note Update
Ms. Ramirez is POD2 following her left hip hemiarthroplasty performed by Dr. Fitzpatrick. She is resting comfortably in bed this morning. She is in soft restraints at present. She denies pain in her hip.
Directed exam of the left lower extremity reveals surgical dressing clean, dry and intact. It does appear she has been picking at the bandage. Mild tenderness about the hip. Thigh soft and compressible. Calf soft and nontender. Patient able to
wiggle toes, plantar and dorsiflex ankle. NVID.
Hgb 10.2 this AM.
79 yo F POD2 left hip hemiarthroplasty under the direction of Dr. Fitzpatrick
--WBAT to LLE with walker. THPs x6-8 weeks. We appreciate the assistance of PT/OT.
--Recommend ASA 325 mg daily x4 weeks for DVT ppx.
--Pain control prn. Ice and elevation for pain and edema control.
--Hgb 10.2 this AM.
--Dressing to remain in place until 7-10 days post-op. It appears she has been picking at the bandage. May change as needed. Staple removal at 2 weeks post-op.
--Case management consult for dc planning.
--Patient is stable post-operatively from an orthopedic standpoint. Orthopedics will sign off for now. Please reach out with any additional orthopedic questions or concerns.
--- NOTE | 2025-01-15 08:20 | W.PN.HOSP.TC ---
Today's Communication/Plan
-
Still agitated needing restraints
Increase Risperdal. Appreciate psychiatry.
See plan.
Assessment / Plan
Assessment / Plan
Physical Exam
General: No Apparent Distress and Comfortable
HEENT: Normocephalic and Moist mucous membranes
Respiratory: Clear
Cardiac: S1/S2 and Regular Rhythm
GI: Soft, Non Tender and Normal Bowel Sounds
Musculoskeletal: No Cyanosis, No Edema and Other (Left Hip ROM with severe pain. Bilateral Lower Extremities Neuro-vascularly Intact Distally.)
Skin: Warm and Dry
Neuro: Awake and Alert
Psych: Calm and Apparent Dementia
Assessment/Plan
Presentation after Fall and Left Hip Pain
Displaced Left Subcapital Hip fracture status post left hip hemiarthroplasty (on 01/13/25) under the direction of Dr. Fitzpatrick
-Fall is likely from patient's dementia and recent gait abnormalities with forward hip flexed gait
-Patient said that she did not lose consciousness
-WBAT to LLE with walker. THPs x6-8 weeks. We appreciate the assistance of PT/OT.
-ASA 325 mg daily x4 weeks for DVT ppx.
-Pain control PRN. Ice and elevation for pain and edema control.
-Dressing to remain in place until 7-10 days post-op. It appears she has been picking at the bandage. May change as needed. Staple removal at 2 weeks post-op.
Chronic Bilateral Hip Pain
-Orthopedics on the case, their consult is appreciated
COPD (not on home oxygen)
-Stable. Continue to monitor.
Generalized Anxiety Disorder
Depression
-Continue Fluoxetine but watch for bleeding given that Aspirin will likely be used post-op
-Continue Bupropion
Dementia with psychosis
-Patient lives at [facility]
-Initially held Risperdal given risk of potentiate sedative and hypotensive effects of anesthetics and opiate analgesics and Risperidone also undergoes CYP2D6 and some CY drug metabolism and can interact with other medications used
perioperatively
-Resumed small dose Risperdal --> on 01/15/25, Risperdal increased from 0.25 mg BID to 0.5 mg BID to help with agitation episodes
-QTc 435
-Psychiatry evaluation
-As needed Zyprexa for agitation given patient spits out SL or PO Ativan. And IV Ativan is in short supply.
History of Hypothyroidism
-No longer on thyroid replacement medication
Former Smoker
DVT Prophylaxis: Aspirin 325 mg daily
Code Status: DNR (At the time of admission, I confirmed this multiple times with patient's sister)
Anticipated Discharge: 24 - 48 hours
Subjective/Interval History
-
Date of Service: January 15, 2025
Patient was seen and examined. Her agitation was much better today, later in the day she became agitated needing Zyprexa.
Objective Data
-
Labs:
Laboratory Results
01/15/25
04:43
WBC 10.1
Hgb 10.2 L
Hct 31.0 L
Plt Count 204
Sodium 137
Potassium 4.0
Chloride 105
Carbon Dioxide 26
BUN 18 H
Creatinine 0.8
Glucose 94
Calcium 8.1 L
Vital Signs:
Vital Signs
Temp Pulse Resp BP Pulse Ox
98.9 F 99 16 124/67 92
01/15/25 07:55 01/15/25 07:55 01/15/25 07:55 01/15/25 07:55 01/15/25 07:55
I&O
01/14/25 01/15/25 01/16/25
06:59 06:59 06:59
Intake Total 100 / 100 45 / 45
Output Total 1400 / 1400 850 / 850
Balance -1300 / -1300 -805 / -805
[2025-01-15] MEDS: WELLBUTRIN SR (12 hour sustained release) 150 MG PO (09:22)
[2025-01-15] MEDS: RISPERDAL 0.25 MG PO (09:22)
[2025-01-15] MEDS: ASPIRIN 325 MG PO (09:22)
[2025-01-15] MEDS: PROZAC 40 MG PO (09:23)
[2025-01-15] MEDS: SENOKOT 17.2 MG PO ×2 (09:34→20:41)
--- NOTE | 2025-01-15 10:11 | PTCARENOTE ---
Addendum entered by Fawn Craig RN 01/15/25 10:16:
0945 pt remains cooperative. Sister at bedside, tolerating sips of water, AM meds given per MAR in applesauce. Breakfast ordered. Care ongoing.
Original Note:
Assumed care of patient at 0715. Wrist restraints in place. Patient calm and cooperative. Bilateral wrist restraints removed at 0740 for trial.
[2025-01-15] MEDS: COLACE PO ×2 (10:15→20:41)
[2025-01-15] MEDS: NSS 1000 IV ×2 (10:25→23:35)
[2025-01-15] MEDS: DESENEX/MITRAZOL/ZEASORB 1 APPLIC TOPICAL ×2 (10:25→20:42)
[2025-01-15 11:15] VITALS: BP 110/53
--- NOTE | 2025-01-15 13:00 | W.PN.UPDATE ---
Update Note
Progress Note Update
patient needed IM injection of Zyprexa last PM, was better this AM but presently is still rather agitated and is being put in restraints for aggressive behavior. She seems very anxious yet restless and combative.
Will order another dose of 2.5 mg of Zyprexa as it was previously effective. Will also increase the Risperdal to 0.5 bid as she was apparently stable on a higher dose prior to surgery.
Will continue F/u.
[2025-01-15] MEDS: ZYPREXA 2.5 MG IM (13:36)
[2025-01-15] MEDS: CYANOCOBALAMIN 1000 MCG IM (13:38)
[2025-01-15] MEDS: STERILE WATER FOR INJECTION 2.1 ML IM (13:38)
[2025-01-15 14:55] LABS: Albumin 3.0 g/dl (3.5-5.0)
--- NOTE | 2025-01-15 14:57 | CM ---
Reviewed the chart notes and spoke with the patient's sister via telephone. Reviewed PT recommendations of SNF. Discussed area SNFs. Referral with [facility] sent via [facility]. CM continues to be available to patient/family and is monitoring medical
plan for needs at discharge.
Plan: Discharge to SNF once bed secured and auth obtained.
[2025-01-15 16:00] VITALS: BP 128/68
[2025-01-15] MEDS: ROXICODONE 5 MG PO ×2 (16:54→22:15)
--- NOTE | 2025-01-15 18:22 | PTCARENOTE ---
1245 called to pt room by PT/OT while attempting session with pt. Pt became agitated, combative and uncooperative. Pt removed tele monitor, nasal cannula, attempting to remove catheter and IV. Attempted to reorient unsuccessfully. Psychiatry
rounding at time of incident. IM Dianne ordered and given @1338. Care ongoing.
[2025-01-15 19:00] VITALS: BP 130/64
[2025-01-15] MEDS: RISPERDAL 0.5 MG PO (20:41)
[2025-01-15] MEDS: MELATONIN 5 MG PO (20:42)
[2025-01-15 23:00] VITALS: BP 108/60
[2025-01-15] MEDS: ATIVAN 0.25 MG PO (23:44)
[2025-01-16 01:00] VITALS: BP 130/63
[2025-01-16] MEDS: STERILE WATER FOR INJECTION 2.1 ML IM (01:36)
[2025-01-16] MEDS: ZYPREXA 2.5 MG IM (01:36)
--- NOTE | 2025-01-16 04:07 | PTCARENOTE ---
pt has been restless this shift thus far. Assessed for pain, pt was medicated w PRN pain medication. Pt was anxious and calling out for family members, exist seeking - pt was then given PRN anxiety medication. Pt continued to try to get out of bed,
began pulling at her catheter and IV. Pt was then was ordered STAT IM Zyprexa. Little relief was note after IM Zyprexa was given. Pt frequently reoriented, however, unsuccessful. This RN and the PCT on shift provided close patient monitoring. Care
ongoing.
[2025-01-16 05:31] LABS: Hematocrit 29.9 % (37.0-47.0); Hemoglobin 9.9 g/dL (12.0-16.0); Mean Corp Hgb Conc. 33.1 g/dL (33.0-37.0); Mean Corpuscular Volume 86.4 fL (81.0-99.0); Platelet Count 187 10^3/uL (130-400); Red Cell Dist. Width 14.3 % (11.5-14.5)
[2025-01-16 05:55] LABS: Blood Urea Nitrogen 14 mg/dl (7-17); Calcium 8.3 mg/dl (8.4-10.2); Carbon Dioxide 28 mmol/L (22-30); Chloride 104 mmol/L (98-107); Estimated Creatinine Clearance 75 ml/min; Glucose 105 mg/dl (70-99); Potassium 3.9 mmol/L (3.5-5.1); Sodium 134 mmol/L (135-145); eGFR > 60.00
[2025-01-16 07:30] VITALS: BP 139/80
[2025-01-16] MEDS: SPIRIVA RESPIMAT 2.5 MCG 2 PUFF INH (07:42)
--- NOTE | 2025-01-16 07:50 | RESPNOTE ---
Respiratory: patient's SpO2 on Room Air 90% returned back to 2 LPM patient unable to walk for home oxygen assessment. RN made aware.
[2025-01-16] MEDS: CYANOCOBALAMIN 1000 MCG IM (08:01)
[2025-01-16] MEDS: ASPIRIN 325 MG PO (08:01)
[2025-01-16] MEDS: SENOKOT 17.2 MG PO ×2 (08:01→21:25)
[2025-01-16] MEDS: RISPERDAL 0.5 MG PO (08:01)
[2025-01-16] MEDS: PROZAC 40 MG PO (08:01)
[2025-01-16] MEDS: COLACE 100 MG PO (08:01)
[2025-01-16] MEDS: WELLBUTRIN SR (12 hour sustained release) 150 MG PO (08:01)
[2025-01-16] MEDS: DESENEX/MITRAZOL/ZEASORB 1 APPLIC TOPICAL ×2 (08:02→21:25)
--- NOTE | 2025-01-16 09:55 | PN.CDI ---
CDI
- -
CDI:
Physician Documentation Request
Admit Date: 01/12/25 18:15
Dear Doctor Andrew,
Please review the following and provide your response in the progress notes.
Clinical Indicators:
The 01/13 urine culture was positive for Klebsiella pneumoniae/Streptococcus
- IV Ancef given x 3
- 01/14 UC with no growth
Please indicate in your progress notes if you are in agreement that the above diagnosis is valid for this patient:
____ - UTI is a valid diagnosis (Please include it in your progress notes)
____ - UTI is not a valid diagnosis for this patient
____ - Other (please specify)
Use of terms such as suspected, likely, concern for, or probable are acceptable for a diagnosis that is being evaluated, monitored or treated as if it exists and can be coded in the inpatient setting, when documented at the time of discharge.
Thank you,
Judith Obrien RN
CDI Specialist
Please use your independent medical judgment in providing your response.
--- NOTE | 2025-01-16 10:12 | W.PN.HOSP.TC ---
Today's Communication/Plan
-
Agitated/anxious overnight
Psychiatry to titrate patient's medications
Assessment / Plan
Assessment / Plan
Physical Exam
General: No Apparent Distress and Comfortable
HEENT: Normocephalic and Moist mucous membranes
Respiratory: Clear
Cardiac: S1/S2 and Regular Rhythm
GI: Soft, Non Tender and Normal Bowel Sounds
Musculoskeletal: No Cyanosis, No Edema and Other (Left Hip ROM with severe pain. Bilateral Lower Extremities Neuro-vascularly Intact Distally.)
Skin: Warm and Dry
Neuro: Awake and Alert
Psych: Calm and Apparent Dementia
Assessment/Plan
Presentation after Fall and Left Hip Pain
Displaced Left Subcapital Hip fracture status post left hip hemiarthroplasty (on 01/13/25) under the direction of Dr. Fitzpatrick
-Fall is likely from patient's dementia and recent gait abnormalities with forward hip flexed gait
-Patient said that she did not lose consciousness
-WBAT to LLE with walker. THPs x6-8 weeks. We appreciate the assistance of PT/OT.
-ASA 325 mg daily x4 weeks for DVT ppx.
-Pain control PRN. Ice and elevation for pain and edema control.
-Dressing to remain in place until 7-10 days post-op. It appears she has been picking at the bandage. May change as needed. Staple removal at 2 weeks post-op.
Chronic Bilateral Hip Pain
-Orthopedics on the case, their consult is appreciated
UTI is a possible diagnosis
-Patient remains confused (could all just be post-op effects in setting of her dementia) and leukocytosis resolved
-Urine culture grew Klebsiella pneumoniae and Streptococcus species
-Start Cefdinir 300 mg Q12H for 5 days
COPD (not on home oxygen)
-Stable. Continue to monitor.
Generalized Anxiety Disorder
Depression
-Continue Fluoxetine but watch for bleeding given that Aspirin will likely be used post-op
-Continue Bupropion
Dementia with psychosis
-Patient lives at [facility]
-Initially held Risperdal given risk of potentiate sedative and hypotensive effects of anesthetics and opiate analgesics and Risperidone also undergoes CYP2D6 and some CY drug metabolism and can interact with other medications used
perioperatively
-Resumed small dose Risperdal --> on 01/15/25, Risperdal increased from 0.25 mg BID to 0.5 mg BID to help with agitation episodes
-QTc 435
-Psychiatry evaluation
-As needed Zyprexa for agitation given patient spits out SL or PO Ativan. And IV Ativan is in short supply.
History of Hypothyroidism
-No longer on thyroid replacement medication
Former Smoker
DVT Prophylaxis: Aspirin 325 mg daily
Code Status: DNR (At the time of admission, I confirmed this multiple times with patient's sister)
Anticipated Discharge: Within 24 hours
Subjective/Interval History
-
Date of Service: January 16, 2025
Patient was seen and examined. She was anxious/agitated overnight needing IM Zyprexa as per nurse's report.
Objective Data
-
Labs:
Laboratory Results
01/16/25
05:22
WBC 8.2
Hgb 9.9 L
Hct 29.9 L
Plt Count 187
Sodium 134 L
Potassium 3.9
Chloride 104
Carbon Dioxide 28
BUN 14
Creatinine 0.6
Glucose 105 H
Calcium 8.3 L
Vital Signs:
Vital Signs
Temp Pulse Resp BP Pulse Ox
97.7 F 90 20 139/80 94
01/16/25 07:30 01/16/25 07:43 01/16/25 07:43 01/16/25 07:30 01/16/25 07:43
I&O
01/15/25 01/16/25 01/17/25
06:59 06:59 06:59
Intake Total 45 / 45 2520 / 2520
Output Total 850 / 850 1075 / 1075
Balance -805 / -805 1445 / 1445
--- NOTE | 2025-01-16 10:37 | CM ---
Reviewed the chart notes and spoke with the patient's sister Tracee at the bedside. Patient received early this morning IM Zyprexa. Referrals were sent yesterday to SNFs. Waiting on responses. Auth will be required. Patient needs to be off
physical/chemical restraints for a minimum of 24hrs for any facility to accept. CM continues to be available to patient/family and is monitoring medical plan for needs at discharge.
Plan: Discharge to SNF/rehab prior to transitioning back to [facility]. Auth will be required.
[2025-01-16] MEDS: ROXICODONE 10 MG PO (12:14)
[2025-01-16] MEDS: OMNICEF 300 MG PO ×2 (12:14→21:26)
--- NOTE | 2025-01-16 12:43 | PTCARENOTE ---
attempted to wean off O2. patient is 88% on RA. 2L NC placed back on. patient is incontinent of urine. does not follow commands. this RN present during patient's sister visit. patient does not recognize her family member and as per her sister 'is
hallucinating'. Md made aware. PRN dose of oxy given for pain noticed during repositioning. patient was noted crossing her legs, attempted to reinforce hip precaution, but patient is unable to follow directions
[2025-01-16 15:20] VITALS: BP 125/66
--- NOTE | 2025-01-16 15:45 | W.PN.UPDATE ---
Update Note
Progress Note Update
Pt seen, chart reviewed. Pt lying in bed, in no acute distress, awake, but not oriented, not able to give information. Pt noted to be in restraints overnight, was given Zyprexa 2.5 mg IM, was restless/agitated, pulling at lines/tubes.
Imp: Dementia with agitation; R/o superimposed delirium
Rec: Increase Risperidone back to 1 mg at HS, continue 0.5 mg daytime. continue other established psychotropic medications
Will follow
[2025-01-16] MEDS: MELATONIN 5 MG PO (21:25)
[2025-01-16] MEDS: COLACE PO (21:25)
[2025-01-16] MEDS: RISPERDAL 1 MG PO (21:26)
--- NOTE | 2025-01-16 22:22 | PTCARENOTE ---
Isac Casas made aware that patient removed post op hip dressing - replaced w primaseal. VETERINARY MEDICINE DOCTOR Also made aware that patient's left hip is erythematous/ warm to the touch. Care ongoing.
[2025-01-16 23:00] VITALS: BP 135/68
[2025-01-17 07:35] VITALS: BP 137/61
[2025-01-17] MEDS: SPIRIVA RESPIMAT 2.5 MCG INH (07:56)
[2025-01-17] MEDS: OMNICEF 300 MG PO ×2 (08:50→20:48)
[2025-01-17] MEDS: PROZAC 40 MG PO (08:50)
[2025-01-17] MEDS: SENOKOT PO ×2 (08:50)
[2025-01-17] MEDS: WELLBUTRIN SR (12 hour sustained release) 150 MG PO (08:50)
[2025-01-17] MEDS: RISPERDAL 0.5 MG PO (08:50)
[2025-01-17] MEDS: ASPIRIN 325 MG PO (08:51)
[2025-01-17] MEDS: COLACE PO ×2 (08:52)
[2025-01-17] MEDS: CYANOCOBALAMIN 1000 MCG IM (08:52)
[2025-01-17] MEDS: DESENEX/MITRAZOL/ZEASORB 1 APPLIC TOPICAL ×2 (08:55→21:00)
--- NOTE | 2025-01-17 09:49 | W.PN.HOSP.TC ---
Today's Communication/Plan
-
See plan
Assessment / Plan
Assessment / Plan
Physical Exam
General: No Apparent Distress and Comfortable
HEENT: Normocephalic and Moist mucous membranes
Respiratory: Clear
Cardiac: S1/S2 and Regular Rhythm
GI: Soft, Non Tender and Normal Bowel Sounds
Musculoskeletal: No Cyanosis, No Edema and Other (Left Hip ROM with severe pain. Bilateral Lower Extremities Neuro-vascularly Intact Distally.)
Skin: Warm and Dry
Neuro: Awake and Alert
Psych: Calm and Apparent Dementia
Assessment/Plan
Presentation after Fall and Left Hip Pain
Displaced Left Subcapital Hip fracture status post left hip hemiarthroplasty (on 01/13/25) under the direction of Dr. Fitzpatrick
-Fall is likely from patient's dementia and recent gait abnormalities with forward hip flexed gait
-Patient said that she did not lose consciousness
-WBAT to LLE with walker. THPs x6-8 weeks. We appreciate the assistance of PT/OT.
-ASA 325 mg daily x4 weeks for DVT ppx.
-Pain control PRN. Ice and elevation for pain and edema control.
-Dressing to remain in place until 7-10 days post-op. It appears she has been picking at the bandage. May change as needed. Staple removal at 2 weeks post-op.
-Overnight 01/16/25 to 01/17/25, patient removed her post-op hip dressing and it was replaced with primaseal -- left hip was erythematous/ warm to the touch -- I communicated this to on-call orthopedics Dr. Jimenez
who said Vivienne Lemos PA-C will stop by and see her on the morning of 01/17/25
Hypoxia
-Has been ongoing post-op
-Has COPD, but does not wear oxygen at home (please see below)
-CXR on 01/17/25 revealed mild acute interstitial and alveolar cardiogenic pulmonary edema.
-CXR on 01/17/25 also revealed mild airspace opacity in the left lower lung which is probably subsegmental atelectasis or scarring. Patient cannot cooperate with incentive spirometer.
-Will order Lasix IV 40 mg
-proBNP, EKG and troponins
-Check echo given concern for cardiogenic pulmonary edema
Chronic Bilateral Hip Pain
-Orthopedics on the case, their consult is appreciated
UTI is a possible diagnosis
-Patient remains confused (could all just be post-op effects in setting of her dementia) and leukocytosis resolved
-Urine culture grew Klebsiella pneumoniae and Streptococcus species
-Continue Cefdinir 300 mg Q12H for 5 days
COPD (not on home oxygen)
-Stable. Continue to monitor.
Generalized Anxiety Disorder
Depression
-Continue Fluoxetine but watch for bleeding given that Aspirin is being used post-op
-Continue Bupropion
Dementia with psychosis
-Patient lives at [facility]
-Initially held Risperdal given risk of potentiate sedative and hypotensive effects of anesthetics and opiate analgesics and Risperidone also undergoes CYP2D6 and some CY drug metabolism and can interact with other medications used
perioperatively
-Resumed small dose Risperdal --> Continue Risperidone 1 mg at HS and 0.5 mg daytime.
-Psychiatry evaluation
-As needed Zyprexa for agitation given patient spits out SL or PO Ativan. And IV Ativan is in short supply.
History of Hypothyroidism
-No longer on thyroid replacement medication
Former Smoker
DVT Prophylaxis: Aspirin 325 mg daily
Code Status: DNR (At the time of admission, I confirmed this multiple times with patient's sister)
Anticipated Discharge: 24 - 48 hours
Subjective/Interval History
-
Date of Service: January 17, 2025
Patient was seen and examined. She remains agitated at times.
Objective Data
-
Vital Signs:
Vital Signs
Temp Pulse Resp BP Pulse Ox
98.8 F 92 18 137/61 94
01/17/25 07:35 01/17/25 07:57 01/17/25 07:57 01/17/25 07:35 01/17/25 07:57
I&O
01/16/25 01/17/25 01/18/25
06:59 06:59 06:59
Intake Total 2520 / 2520 480 / 480
Output Total 1075 / 1075
Balance 1445 / 1445 480 / 480
--- NOTE | 2025-01-17 10:57 | W.PN.UPDATE ---
Update Note
Progress Note Update
Patient seen at bedside, chart reviewed, discussed with staff. Ms. Ramirez was sleeping but easily arousable, calm but confused. Nursing reports she has not been overly agitated but can get agitated easily if not told what is going on or what is
going to be happening to her which is understandable. She responds well to a calm approach. She has not been restrained in over 48 hours.
Impression/Recommendations: Dementia with agitation, possible post operative effects contributing as well as a UTI. She has been started on a antibiotic. Continue Risperidone 1 mg at HS and 0.5 mg daytime. Monitor for excessive daytime sleepiness.
Continue the remainder of her OP psychotropic regimen.
--- NOTE | 2025-01-17 13:47 | CM ---
updated clinical information sent to [facility], awaiting updated response. CM will continue to follow for discharge planning needs.
Plan; SNF
[2025-01-17 15:30] VITALS: BP 131/66
[2025-01-17 15:47] VITALS: BP 131/66; PULSE 90; O2SAT 95
--- NOTE | 2025-01-17 17:50 | PTCARENOTE ---
Patient experienced intermittent agitation throughout the day. security shift manager RN reported pt did not receive chemical or physical restraints, pt has also not needed physical or chemical restraints this day shift. Care ongoing.
[2025-01-17 18:07] LABS: Blood Urea Nitrogen 13 mg/dl (7-17); Calcium 8.9 mg/dl (8.4-10.2); Carbon Dioxide 31 mmol/L (22-30); Chloride 101 mmol/L (98-107); Estimated Creatinine Clearance 75 ml/min; Glucose 104 mg/dl (70-99); Potassium 3.5 mmol/L (3.5-5.1); Sodium 137 mmol/L (135-145); eGFR > 60.00
[2025-01-17 18:18] LABS: Troponin I < 0.012 ng/ml
--- NOTE | 2025-01-17 18:55 | W.PN.UPDATE ---
Update Note
Progress Note Update
Patient seen and examined this evening. Confused. Dressing changed. Incision is CDI. NVI distally. Erythema and swelling as expected. Will require SNF. Sarah can be removed in 2 weeks. Followup in office in 4 weeks with PA.
[2025-01-17] MEDS: LASIX 20 MG IV (20:41)
[2025-01-17] MEDS: COLACE 100 MG PO (20:49)
[2025-01-17] MEDS: MELATONIN 5 MG PO (20:49)
[2025-01-17] MEDS: RISPERDAL 1 MG PO (20:49)
[2025-01-17] MEDS: SENOKOT 17.2 MG PO (20:49)
[2025-01-17 23:00] VITALS: BP 116/72
[2025-01-17 23:46] LABS: Troponin I < 0.012 ng/ml
[2025-01-18 05:38] LABS: Hematocrit 32.4 % (37.0-47.0); Hemoglobin 10.8 g/dL (12.0-16.0); Mean Corp Hgb Conc. 33.3 g/dL (33.0-37.0); Mean Corpuscular Volume 86.2 fL (81.0-99.0); Platelet Count 278 10^3/uL (130-400); Red Cell Dist. Width 14.1 % (11.5-14.5)
[2025-01-18 05:52] LABS: Blood Urea Nitrogen 13 mg/dl (7-17); Calcium 8.7 mg/dl (8.4-10.2); Carbon Dioxide 31 mmol/L (22-30); Chloride 99 mmol/L (98-107); Estimated Creatinine Clearance 75 ml/min; Glucose 102 mg/dl (70-99); Magnesium 1.8 mg/dl (1.6-2.3); Potassium 3.6 mmol/L (3.5-5.1); Sodium 137 mmol/L (135-145); eGFR > 60.00
[2025-01-18 06:03] LABS: Troponin I < 0.012 ng/ml
[2025-01-18] MEDS: SPIRIVA RESPIMAT 2.5 MCG 2 PUFF INH (07:11)
[2025-01-18 08:10] VITALS: BP 136/55
[2025-01-18] MEDS: ASPIRIN 325 MG PO (08:52)
[2025-01-18] MEDS: COLACE PO ×2 (08:52→09:18)
[2025-01-18] MEDS: CYANOCOBALAMIN 1000 MCG IM (08:53)
[2025-01-18] MEDS: PROZAC 40 MG PO (08:54)
[2025-01-18] MEDS: WELLBUTRIN SR (12 hour sustained release) 150 MG PO (08:54)
[2025-01-18] MEDS: OMNICEF 300 MG PO ×2 (08:54→20:32)
[2025-01-18] MEDS: RISPERDAL 0.5 MG PO (08:54)
[2025-01-18] MEDS: SENOKOT 17.2 MG PO ×2 (08:54→20:33)
[2025-01-18] MEDS: DESENEX/MITRAZOL/ZEASORB 1 APPLIC TOPICAL ×2 (08:56→20:34)
--- NOTE | 2025-01-18 11:05 | W.PN.UPDATE ---
Update Note
Progress Note Update
patient seen chart reviewed. discussed with nursing. sister at bedside. the patient was listing in the bed...legs over the edge sister fearful she might fall out. she was easily repositioned. the patient remains very very confused. at the
present moment she was calm and did not appear to be in pain but did not interact when i attempted to engage her in conversation. noted risperdal has been inc to o.5 in the am one mg q pm given periods of agitation. she had been on 2mg bid. would
support the smallest dose possible to keep her comfortable and safe. she has not required a prn of ativan since 01/15 although she has had prn's of zyprexa when required im antipsychotics on 01/14 and 01/15 hopefully that will no longer be needed. will
follow
--- NOTE | 2025-01-18 11:59 | W.PN.HOSP.TC ---
Today's Communication/Plan
-
Medically appropriate for SNF discharge
Assessment / Plan
Assessment / Plan
1. Displaced Left Subcapital Hip fracture
status post left hip hemiarthroplasty (on 01/13/25)
Mechanical fall
-Fall is likely from patient's dementia and recent gait abnormalities with forward hip flexed gait
-Patient said that she did not lose consciousness
-WBAT to LLE with walker. THPs x6-8 weeks.
-ASA 325 mg daily x4 weeks for DVT ppx.
-Dressing to remain in place until 7-10 days post-op. It appears she has been picking at the bandage. May change as needed. Staple removal at 2 weeks post-op.
-Surgical site reevaluated by orthopedic surgeon and dressing changed yesterday. No concern of new infection.
-Discharge planning for [facility] facility for rehab
2. Acute hypoxic respite insufficiency
-Postoperative, can be possibly congestion versus atelectasis related
-Chest x-ray showing mild acute interstitial and alveolar cardiogenic pulmonary edema
-Got IV Lasix 40 mg, of note echocardiogram showing preserved ejection fraction. Mild AR.
-weaned off o2
3. Dementia with behavioral problems
- Currently controlled with nighttime Risperdal 1 mg in the morning half milligram dose
- Off of restraints
- Patient lives at [facility] care unit
4. UTI
-Patient remains confused (could all just be post-op effects in setting of her dementia) and leukocytosis resolved
-Urine culture grew Klebsiella pneumoniae and Streptococcus species
-Continue Cefdinir 300 mg Q12H for 5 days
5. COPD (not on home oxygen)
-Stable. Continue to monitor.
6. Generalized Anxiety Disorder
Depression
-Continue Fluoxetine but watch for bleeding given that Aspirin is being used post-op
-Continue Bupropion
7. History of Hypothyroidism
-No longer on thyroid replacement medication
Former Smoker
DVT Prophylaxis: Aspirin 325 mg daily
Code Status: DNR (At the time of admission, I confirmed this multiple times with patient's sister)
Anticipated Discharge: Today
Subjective/Interval History
-
Date of Service: January 18, 2025
Comfortable in bed
No reported agitation issues overnight
Not having any problems with excessive pain
Objective Data
-
Labs:
Laboratory Results
01/18/25
05:17
WBC 7.9
Hgb 10.8 L
Hct 32.4 L
Plt Count 278 D
Sodium 137
Potassium 3.6
Chloride 99
Carbon Dioxide 31 H
BUN 13
Creatinine 0.6
Glucose 102 H
Calcium 8.7
Vital Signs:
Vital Signs
Temp Pulse Resp BP Pulse Ox
97.8 F 82 18 136/55 96
01/18/25 08:10 01/18/25 08:10 01/18/25 08:10 01/18/25 08:10 01/18/25 08:10
I&O
01/17/25 01/18/25 01/19/25
06:59 06:59 06:59
Intake Total 480 / 480
Balance 480 / 480
Review of Systems
-
Unable to obtain full review of systems at this time due to: Dementia
Physical Exam
-
General: No Apparent Distress, Comfortable and Conversant
Respiratory: Clear to Auscultation
Cardiac: Regular Rhythm and S1/S2
Skin: Warm and Dry
Neuro: Awake and Alert
Psych: Confused and Apparent Dementia
[2025-01-18 12:20] LABS: Troponin I < 0.012 ng/ml
--- NOTE | 2025-01-18 14:35 | PN.CDI ---
CDI
- -
CDI:
Physician Documentation Request
Admit Date: 01/12/25 18:15
Dear Doctor Armand,
Please review the following and provide your response in the progress notes.
Clinical Indicators:
- 01/18 PN 'Acute hypoxic respite insufficiency'
- 'Postoperative, can be possibly congestion versus atelectasis related'
- 'COPD (not on home oxygen)'
- 01/13 Left hip hemiarthroplasty
- Documented VS 1-3L O2, SpO2 >88%
Please clarify which of the following accurately represents the patient's respiratory status following surgery:
Acute hypoxic respiratory failure
Acute pulmonary insufficiency (following surgery)
Hypoxia
Other (Please specify)
Additional information for Pulmonary Insufficiency:
Consider when patients require rodent exterminator oxygen therapy postoperatively
Weaned off oxygen initially then requiring supplemental oxygen
No other definitive diagnosis to support the need for oxygen (COPD exac, CHF etc.)
Unable to wean from vent
When criteria for respiratory failure not present
May extend stay or require additional resources; may need home O2
Additional information for Respiratory Failure:
Recognized criteria for Respiratory Failure (Source: [facility] Hospitalist Apr 2013)
ABGs: (1 or more) Symptoms Indicate:
1. p)2 <60 or RA SPO2 <91% on RA 1. Tachypnea, SOB, dyspnea 1. Type as:
2. pCO2 50 and pH <7.35 2. Use of accessory muscles a. Hypoxic
3. pO2 decrease of pCO2 increase by 3. Pallor or cyanosis b. Hypercapnic
10 mmHg from baseline if known 4. Anxiety or restlessness 2. If due to procedure or due to another cause
5. Unable to speak in full sentences
Supplemental O2 of > 40% Intubation is not required
Use of terms such as suspected, likely, concern for, or probable (associated with a specific diagnosis that is being evaluated, monitored, or treated as if it exists) are acceptable and can be coded in the inpatient setting, when documented at the
time of discharge.
Thank you,
Judith Obrien RN
CDI Specialist
Please use your independent medical judgment in providing your response.
[2025-01-18 15:44] VITALS: BP 121/56
--- NOTE | 2025-01-18 16:13 | CM ---
Reviewed the chart notes and spoke with Denia JEAN from [facility]. Facility spoke with the patient's sister and they may possibly take patient back to [facility], but on hospice. Per Denia, she will reach out to her contact with
[facility]. She will call CM back tomorrow afternoon to further discuss discharge plans. [facility], no [facility] today, possibly tomorrow. CM continues to be available to patient/family and is monitoring
medical plan for needs at discharge.
Plan: Discharge possibly back to [facility], but on hospice. CM to speak with Denia JEAN and sister tomorrow.
[2025-01-18] MEDS: ATIVAN 0.25 MG PO (17:48)
--- NOTE | 2025-01-18 19:38 | PTCARENOTE ---
during shift change, pt found sitting on floor by the right side of bed. pt was yelling for her sister, Tracee who had just left. pt was sitting on her bottom. leaning up against the chair next to bed. pt lifted and returned to bed, large amount
of yellow urine noted on floor. pt offering no c/o of pain. pt stated she is scared. house provider made aware. left hip dressing partially off-new dressing placed. bed alarm in use and functioning. care ongoing.
[2025-01-18 20:00] VITALS: BP 92/62
[2025-01-18 20:18] LABS: Glucose - Point of Care 110 mg/dl (70-99)
[2025-01-18] MEDS: MELATONIN 5 MG PO (20:32)
[2025-01-18] MEDS: RISPERDAL 1 MG PO (20:33)
[2025-01-18] MEDS: COLACE 100 MG PO (20:33)
--- NOTE | 2025-01-18 22:04 | W.PN.UPDATE ---
Update Note
Progress Note Update
At change of shift RN states patient found to be in a sitting position on the floor leaning towards the chair right next to the bed.Patient seen and evaluated, Patient is disoriented and confused, unable to tell me what happened. no new bruises,
edema, or cuts noted. dressing in place left hip/thigh. no bleeding noted. stable VS.
will order Xray of the hip, fall precautions addressed to RN.
Xray image noted, awaiting radiologist report for confirmation
[2025-01-18] MEDS: ROXICODONE 5 MG PO (23:32)
[2025-01-18 23:55] VITALS: BP 118/82
[2025-01-19] MEDS: SPIRIVA RESPIMAT 2.5 MCG INH (07:39)
[2025-01-19 08:32] VITALS: BMI 27.1
[2025-01-19 09:01] VITALS: BP 102/51
[2025-01-19] MEDS: DESENEX/MITRAZOL/ZEASORB 1 APPLIC TOPICAL (09:36)
[2025-01-19] MEDS: OMNICEF 300 MG PO (09:37)
[2025-01-19] MEDS: SENOKOT 17.2 MG PO (09:38)
[2025-01-19] MEDS: WELLBUTRIN SR (12 hour sustained release) 150 MG PO (09:38)
[2025-01-19] MEDS: ASPIRIN 325 MG PO (09:38)
[2025-01-19] MEDS: PROZAC 40 MG PO (09:39)
[2025-01-19] MEDS: COLACE 100 MG PO (09:40)
[2025-01-19] MEDS: CYANOCOBALAMIN 1000 MCG IM (09:40)
[2025-01-19] MEDS: RISPERDAL 0.5 MG PO (09:43)
--- NOTE | 2025-01-19 11:19 | W.PN.UPDATE ---
Update Note
Progress Note Update
patient seen chart reviewed. discussed with nursing sister at bedside. the patient was calm and pleasant. while every so often she said something was relevant and appropriate (praise for her devoted sister) she is clearly very confused and cannot
carry on a coherent conversation. she was found on the floor earlier ...sitting by the bed having been incontinent. not clear why. she was not hurt. hospice at [facility] is being considered. patient has not been eating very much...although this
am she did eat a better breakfast. do not feel we need to inc risperdal at this time. continue as currently
--- NOTE | 2025-01-19 12:58 | W.PN.HOSP.TC ---
Today's Communication/Plan
-
ongoing discharge planning
Assessment / Plan
Assessment / Plan
1. Displaced Left Subcapital Hip fracture
status post left hip hemiarthroplasty (on 01/13/25)
Mechanical fall
-Fall is likely from patient's dementia and recent gait abnormalities with forward hip flexed gait
-Patient said that she did not lose consciousness
-WBAT to LLE with walker. THPs x6-8 weeks.
-ASA 325 mg daily x4 weeks for DVT ppx.
-Dressing to remain in place until 7-10 days post-op. It appears she has been picking at the bandage. May change as needed. Staple removal at 2 weeks post-op.
-Surgical site reevaluated by orthopedic surgeon and dressing changed yesterday. No concern of new infection.
-Discharge planning for group home facility for rehab
2. Acute hypoxic respite insufficiency
-Postoperative, can be possibly congestion versus atelectasis related
-Chest x-ray showing mild acute interstitial and alveolar cardiogenic pulmonary edema
-Got IV Lasix 40 mg, of note echocardiogram showing preserved ejection fraction. Mild AR.
-weaned off o2
3. Dementia with behavioral problems
- Currently controlled with nighttime Risperdal 1 mg in the morning half milligram dose
- Off of restraints
- Patient lives at [facility] care unit
4. UTI
-Patient remains confused (could all just be post-op effects in setting of her dementia) and leukocytosis resolved
-Urine culture grew Klebsiella pneumoniae and Streptococcus species
-Continue Cefdinir 300 mg Q12H for 5 days
5. COPD (not on home oxygen)
-Stable. Continue to monitor.
6. Generalized Anxiety Disorder
Depression
-Continue Fluoxetine but watch for bleeding given that Aspirin is being used post-op
-Continue Bupropion
7. History of Hypothyroidism
-No longer on thyroid replacement medication
8. Found down
- Patient was found sitting on the floor on night of 01/18
- no signs of fall/trauma
- Patient to be maintained on bed alarm
Former Smoker
DVT Prophylaxis: Aspirin 325 mg daily
Code Status: DNR (At the time of admission, I confirmed this multiple times with patient's sister)
Anticipated Discharge: Within 24 hours
Subjective/Interval History
-
Date of Service: January 19, 2025
Patient was apparently found sitting on floor in the night
No witnessed fall/no signs of trauma
Objective Data
-
Vital Signs:
Vital Signs
Temp Pulse Resp BP Pulse Ox
98.1 F 101 18 102/51 90
01/19/25 09:01 01/19/25 09:01 01/19/25 09:01 01/19/25 09:01 01/19/25 09:01
I&O
01/18/25 01/19/25 01/20/25
06:59 06:59 06:59
Intake Total 480 / 480
Balance 480 / 480
Review of Systems
-
Unable to obtain full review of systems at this time due to: Dementia and Acuity
Physical Exam
-
General: No Apparent Distress, Comfortable and Conversant
Skin: Warm and Dry
Neuro: Awake and Alert
Psych: Confused and Apparent Dementia
--- NOTE | 2025-01-19 13:51 | CM ---
Reviewed the chart notes and spoke with Krys with [facility]. Krys requested clinicals be faxed to [phone]. [facility] will evaluate clinicals and forward to their preferred hospice agency. MARK spoke with the patient's sister
Tracee via telephone. She confirmed back to [facility] on hospice. IMM reviewd. CM continues to be available to patient/family and is monitoring medical plan for needs at discharge.
Plan: Discharge back to [facility] once hospice agency secured.
[2025-01-19 15:39] VITALS: BP 125/95
[2025-01-19 20:22] VITALS: BP 135/47
[2025-01-19] MEDS: COLACE PO (21:12)
[2025-01-19] MEDS: DESENEX/MITRAZOL/ZEASORB TOPICAL (21:12)
[2025-01-19] MEDS: OMNICEF PO (21:13)
[2025-01-19] MEDS: SENOKOT PO (21:13)
[2025-01-19] MEDS: MELATONIN PO (21:14)
[2025-01-19] MEDS: RISPERDAL PO (21:14)
[2025-01-20 03:34] VITALS: BP 112/80
[2025-01-20 07:35] VITALS: BP 141/68
[2025-01-20] MEDS: SPIRIVA RESPIMAT 2.5 MCG 2 PUFF INH (07:36)
[2025-01-20] MEDS: WELLBUTRIN SR (12 hour sustained release) 150 MG PO (09:47)
[2025-01-20] MEDS: RISPERDAL 0.5 MG PO (09:47)
[2025-01-20] MEDS: OMNICEF 300 MG PO (09:47)
[2025-01-20] MEDS: SENOKOT PO (09:56)
[2025-01-20] MEDS: CYANOCOBALAMIN IM (09:56)
[2025-01-20] MEDS: ASPIRIN PO (09:56)
[2025-01-20] MEDS: COLACE PO (09:56)
[2025-01-20] MEDS: PROZAC PO (09:56)
[2025-01-20] MEDS: DESENEX/MITRAZOL/ZEASORB 1 APPLIC TOPICAL (09:57)
--- NOTE | 2025-01-20 10:10 | W.PN.HOSP.TC ---
Today's Communication/Plan
-
d/c [facility] care unit today
Assessment / Plan
Assessment / Plan
1. Displaced Left Subcapital Hip fracture
status post left hip hemiarthroplasty (on 01/13/25)
Mechanical fall
-Fall is likely from patient's dementia and recent gait abnormalities with forward hip flexed gait
-Patient said that she did not lose consciousness
-WBAT to LLE with walker. THPs x6-8 weeks.
-ASA 325 mg daily x4 weeks for DVT ppx.
-Dressing to remain in place until 7-10 days post-op. It appears she has been picking at the bandage. May change as needed. Staple removal at 2 weeks post-op.
-Surgical site reevaluated by orthopedic surgeon and dressing changed. No concern of new infection.
2. Acute hypoxic respite insufficiency - resolved
-Postoperative, can be possibly congestion versus atelectasis related
-Chest x-ray showing mild acute interstitial and alveolar cardiogenic pulmonary edema
-Got IV Lasix 40 mg, of note echocardiogram showing preserved ejection fraction. Mild AR.
3. Dementia with behavioral problems
- Currently controlled with nighttime Risperdal 1 mg in the morning half milligram dose
- Off of restraints
- Patient lives at [facility]
4. UTI - resolved
-Patient remains confused (could all just be post-op effects in setting of her dementia) and leukocytosis resolved
-Urine culture grew Klebsiella pneumoniae and Streptococcus species
-Finished Cefdinir 300 mg Q12H for 5 days
5. COPD (not on home oxygen)
-Stable. Continue to monitor.
6. Generalized Anxiety Disorder
Depression
-Continue Fluoxetine but watch for bleeding given that Aspirin is being used post-op
-Continue Bupropion
7. History of Hypothyroidism
-No longer on thyroid replacement medication
8. Found down
- Patient was found sitting on the floor on night of 01/18
- no signs of fall/trauma
- Patient to be maintained on bed alarm
Former Smoker
DVT Prophylaxis: Aspirin 325 mg daily
Code Status: DNR (At the time of admission, I confirmed this multiple times with patient's sister)
Anticipated Discharge: Today
Subjective/Interval History
-
Date of Service: January 20, 2025
no agitation issues overnight
continues to decline care and medicine periodically
no other reported problems
Objective Data
-
Vital Signs:
Vital Signs
Temp Pulse Resp BP Pulse Ox
97.7 F 89 18 141/68 95
01/20/25 07:35 01/20/25 07:39 01/20/25 07:39 01/20/25 07:35 01/20/25 07:39
I&O
01/19/25 01/20/25 01/21/25
06:59 06:59 06:59
Intake Total 600 / 600
Balance 600 / 600
Review of Systems
-
Unable to obtain full review of systems at this time due to: Dementia
Physical Exam
-
General: No Apparent Distress, Comfortable and Conversant
Musculoskeletal: Other (Left hip dressing intact, no bleeding)
Skin: Warm and Dry
Neuro: Awake and Alert
Psych: Confused and Apparent Dementia
--- NOTE | 2025-01-20 11:15 | CM ---
Addendum entered by Divya Sims RN 01/20/25 12:14:
Patient's sister Tracee and TED Loza informed of pick-up time of 1300.
Original Note:
Reviewed the chart notes and spoke with the patient's sister Tracee via telephone. IMM reviewed. CM spoke with Denia from [facility]. They are able to accept patient back to their facility and will sign her onto their preferred hospice
agency ([facility]). CM continues to be available to patient/family and is monitoring medical plan for needs at discharge.
Plan: Discharge back to [facility] today.
Call report to Denia [phone]
Fax report to: [phone]
Medical and necessity forms on chart.
--- NOTE | 2025-01-20 11:25 | W.PN.UPDATE ---
Update Note
Progress Note Update
patient seen chart reviewed. patient was sitting up in bed . said she was comfortable. this was the most alert i have seen her. usually she is listing in the bed with lower limbs twisted...today she was well positioned. we talked about her
sister's devotion to her for which she is very grateful. she was able to engage in very simple conversation. we talked a bit about her going [facility] unit which will be later today. . she has only had one prn ativan on
01/18 and prior not since 01/15. i asked her how she was passing the time....she does not like tv much. i asked her if she would like a coloring book and markers and her face lit up. will bring them later today.
[2025-01-20 12:23] VITALS: BP 108/50
--- NOTE | 2025-01-20 17:46 | W.DCSUMMARY ---
Discharge Summary
Discharge Data
Date of Admission: 01/12/25
Date of Discharge: 01/20/25
-
Pending Results: No
Hospital Course
Discharging Physician : Dr Benito Acuna
Disposition : Memory care unit under hospice
Primary care physician : Dr Shayne Alfaro
Principal Discharge diagnosis :
Displaced left subcapital hip fracture requiring left hip hemiarthroplasty
Acute hypoxic respiratory insufficiency
Dementia with behavioral problems
Urinary tract infection
Chronic Discharge diagnosis :
Chronic obstructive pulmonary disease
Generalized anxiety disorder
Hypothyroidism
Hospital Course :
Patient is 79-year-old female with above-mentioned past medical history was brought in after patient found down on floor. Patient was brought into ER for further evaluation and was found to having left subcapital fracture. Orthopedics surgery
consulted and patient was taken to the OR for a left hip hemiarthroplasty. Post operative course was complicated by behavioral issues and required anti-psychotic medication. Psychiatry was involved in care for the help and followed the patient
during the hospital stay. Patient had some new developing hypoxic respiratory insufficiency. Chest x-ray was showing mild interstitial worsening pulmonary edema and patient required to be on IV diuretics. Patient was able to be weaned off of
oxygen. Patient was also treated for possible UTI and finished course of antibiotics. Discharge care plan was discussed and patient family requested patient to be evaluated by hospice staff. Patient was deemed appropriate for [facility] hospice level care.
Important imaging findings :
None
Procedure findings :
None
Discharge Plan
-
Patient Disposition: Assisted Living
Discharge Diagnosis/Procedures: Left hip hemiarthroplasty
Condition: Fair
Diet: Regular
Activity: As tolerated and With Walker
Additional Activity: Total hip precautions x6-8 weeks
Driving Restrictions: Not until seen by your Dr
Bathing Restrictions: OK to Shower
Activity Restrictions/Additional Instructions:
Dressing to remain in place until 7-10 days post-op. May change as needed.
Staple removal at 2 weeks post-operative.
Referrals:
Alexadnre Fitzpatrick MD [Active, Orthopedics] - in two to four weeks
Shayne Alfaro MD [Family Provider, Family Practice] - in one week
Prescriptions:
New
aspirin 325 mg Tablet
325 mg PO DAILY Qty: 21 0RF
Rx Instructions:
last dose 02/11 and then stop
magnesium hydroxide [Milk of Magnesia] 400 mg/5 mL Suspension
30 ml PO DAILYPRN PRN (Reason: constipation) Qty: 3000 0RF
polyethylene glycol 3350 17 gram Powder In Packet
17 g PO DAILYPRN PRN (Reason: constipation) Qty: 30 0RF
lorazepam [Ativan] 0.5 mg tablet
0.5 mg PO Q8HPRN PRN (Reason: anxiety) Qty: 10 0RF
risperidone 1 mg tablet,disintegrating
1 mg PO HS Qty: 30 0RF
risperidone 0.5 mg tablet,disintegrating
0.5 mg PO DAILY Qty: 30 0RF
Continued
fluoxetine 40 mg Capsule
40 mg PO DAILY
acetaminophen 325 mg Tablet
650 mg PO TIDPRN PRN (Reason: mild pain)
nystatin [Nystop] 100,000 unit/gram powder
1 applic TOPICAL BID
bupropion HCl [Wellbutrin SR] 150 mg Tablet Sustained-Release 12 Hr
150 mg PO DAILY
melatonin 5 mg Tablet
5 mg PO HS
Incruse Ellipta 62.5 mcg/actuation Blister With Device
1 inh INHALATION R DAILY
Discontinued
lorazepam 0.5 mg Tablet
0.25 mg PO Q6HPRN PRN (Reason: ANXIETY)
risperidone [Risperdal] 1 mg Tablet
1 mg PO BID
Discharge Orders:
Discharge Patient (As Directed); Ordered 01/20/25
Ordered By: Benito Acuna
Discharge Date and Time
Discharge Date/Time: 01/20/25 13:38
Print Language: IRISH
== END 2025-01-20 13:38 | disposition home or self-care (01) | DRG 522 ==
LOC: 2 SOUTH 18:15
PROVIDERS: Emergency Medicine; Nurse Practitioner Gerontology; Orthopaedic Surgery; Registered Nurse; ADMITTING PHYSICIAN Hospitalist; ATTENDING PHYSICIAN Hospitalist; CONSULT PHYSICIAN Orthopaedic Surgery; EMERGENCY PHYSICIAN Emergency Medicine; FAMILY PHYSICIAN Family Medicine; OTHER PHYSICIAN Psychiatry & Neurology Psychiatry
PROC: 0SRS0J9 Replacement of Left Hip Joint, Femoral Surface with Synthetic Substitute, Cemented, Open Approach (ICD-10-PCS; 2025-01-13)
DX: S72.012A Unspecified intracapsular fracture of left femur, initial encounter for closed fracture (principal); F03.911 Unspecified dementia, unspecified severity, with agitation; F03.92 Unspecified dementia, unspecified severity, with psychotic disturbance; F03.93 Unspecified dementia, unspecified severity, with mood disturbance; N39.0 Urinary tract infection, site not specified; J44.9 Chronic obstructive pulmonary disease, unspecified; F41.1 Generalized anxiety disorder; R06.89 Other abnormalities of breathing; F32.A Depression, unspecified; G89.29 Other chronic pain; B96.1 Klebsiella pneumoniae [K. pneumoniae] as the cause of diseases classified elsewhere; B95.5 Unspecified streptococcus as the cause of diseases classified elsewhere; M25.551 Pain in right hip; E03.9 Hypothyroidism, unspecified; R09.02 Hypoxemia; W19.XXXA Unspecified fall, initial encounter; Y93.9 Activity, unspecified; Y92.099 Unspecified place in other non-institutional residence as the place of occurrence of the external cause; Z66 Do not resuscitate; Z87.891 Personal history of nicotine dependence; Z78.1 Physical restraint status
CPT/HCPCS: 71045; 73502; 80048; 80053; 81003; 81015; 82040; 82607; 82746; 82962; 83735; 83880; 84443; 84484; 85025; 85027; 86850; 86900; 86901; 87070; 87077; 87086; 87186; 93005; 93306; 94640; 96374; 96375; 97163; 97167; 97530; 97535; 99285; C1713; C1776; J2358